=== PATIENT | female | born 1980 | race Caucasian/White ===

== ENCOUNTER → 2017-04-03 | Outpatient (CLI) | payer OTHER ==
[2017-04-03 10:33] LABS: Basophils # (A) 0.1 k/uL (0-0.2); Basophils % (A) 1 %; Eosinophils # (A) 0.3 k/uL (0-0.7); Eosinophils % (A) 3 %; HCT 43.2 % (34.0-46.0); HGB 14.5 gm/dL (11.4-16.0); Lymphocytes # (A) 3.3 k/uL (1.0-4.8); Lymphocytes % (A) 32 %; MCHC 33.6 g/dL (31.0-37.0); MCV 89.4 fL (80.0-100.0); Mean Platelet Volume 7.6; Monocytes # (A) 0.5 k/uL (0-1.0); Monocytes % (A) 5 %; Neutrophils # (A) 5.9 k/uL (1.3-7.7); Neutrophils % (A) 58 %; Platelet Count 288 k/uL (150-450); RBC 4.83 m/uL (3.80-5.40); RDW 13.1 % (11.5-15.5); WBC 10.2 k/uL (3.8-10.6)
[2017-04-03 10:45] LABS: Anion Gap 11 mmol/L; Blood Urea Nitrogen 11 mg/dL (7-17); Calcium 9.9 mg/dL (8.4-10.2); Carbon Dioxide 26 mmol/L (22-30); Chloride 103 mmol/L (98-107); Glucose 82 mg/dL (74-99); Potassium 3.9 mmol/L (3.5-5.1); Sodium 140 mmol/L (137-145)
--- NOTE | 2017-04-03 12:36 | XR ---
EXAMINATION TYPE: XR Hip Complete LT DATE OF EXAM: 04/03/2017 COMPARISON: NONE HISTORY: 36-year-old female with chronic left hip pain TECHNIQUE: 2 views FINDINGS: There is mild degenerative spurring at the left hip. There seems to be a small anterior femoral head neck junction osseous excrescence on the frog-leg lateral view. No significant hip joint space narrow ing. No acute fracture or dislocation. IMPRESSION: 1. Mild degenerative spurring at the left hip. 2. 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
== END | disposition home or self-care (01) ==
LOC: RADXRMAIN 09:58
PROVIDERS: ATTEND Physician Assistant
DX: M25.752 Osteophyte, left hip (principal); M53.83 Other specified dorsopathies, cervicothoracic region
CPT/HCPCS: 36415; 73502; 80048; 84439; 84443; 85025

== ENCOUNTER → 2017-10-02 | Outpatient (CLI) | payer OTHER ==
--- NOTE | 2017-10-04 11:25 | MR ---
EXAMINATION TYPE: MR hip LT wo con DATE OF EXAM: 10/02/2017 COMPARISON: Left hip x-ray April 03, 2017 HISTORY: Left hip pain. Pain with locking sensation and limited movement for one year per patient. Standard multiplanar, multisequence MRI departmental protocol Multiplanar, multisequence images of the pelvis focus on the left hip were acquired. FINDINGS: The bone marrow signal intensity throughout the pelvis including left hip shows heterogenei ty without discrete edema or linear T1 signal to suggest avascular necrosis. There are symmetric phys iologic small hip joint effusions noted bilaterally. No significant spurring or joint space loss is e vident bilaterally. No significant subchondral cystic changes present. No suspicious fluid signal is noted at level of greater or lesser trochanter. Labrum appears grossly intact given limitation of non arthrogram study. Visualized portion of the bladder is felt to be within normal limits. Uterus is slightly retroverted and shape. Some thickening of the junctional zone measuring up to 14 mm is present with some cystic c hange concerning for adenomyosis. Correlate clinically. There is partial visualization of both ovarie s with slightly prominent follicles. No concerning pelvic fluid collection is seen. No suspicious pel jeffrey adenopathy is noted. There is no suspicious groin adenopathy. No suspicious groin hernias are present. Muscle bulk is symm etric and felt within normal limits in both thighs. IMPRESSION: No significant finding is seen to account for patient's symptoms of left hip pain.
== END | disposition home or self-care (01) ==
LOC: RADMRIMAIN 15:52
PROVIDERS: ATTEND Family Medicine
DX: M25.552 Pain in left hip (principal)

== ENCOUNTER 2017-12-05 09:56 | Emergency (ER) | payer OTHER ==
[2017-12-05 10:02] VITALS: RESP 18
[2017-12-05] MEDS ORDERED: SODIUM CHLORIDE 0.9% 500 ML 500 ML IV STA (10:25)
[2017-12-05] MEDS ORDERED: KETOROLAC 30 MG/ML 1 ML VIAL IVP STA (10:25)
--- NOTE | 2017-12-05 10:28 | ED ---
Back Pain HPI - General Chief Complaint: Back Pain/Injury Stated Complaint: BACK PAIN Time Seen by Provider: 12/05/17 10:20 Source: patient, RN notes reviewed Mode of arrival: ambulatory Limitations: no limitations - History of Present Illness Initial Comments: 37-year-old female presents emergency Department chief complaint of right-sided rib pain. Patient states has been bothersome for last 2 weeks states that she' s been seen a chiropractor who told her that her rib is out of place. Patient states that she was feeling better but states that she went triple carpet last night and she's had increase in pain. She states it wraps around her right lower ribs and into her upper abdomen. Patient denies any left-sided chest pain no shortness of breath she has had pain with movement and deep inspiration the right. Denies headache, fever, chills, nausea vomiting diarrhea constipation. She states initially when this all started she slipped and some odd and fell. Patient otherwise has no other complaints denies any prior issues like this in the past. - Related Data Previous Rx's Medication Instructions Recorded Cyclobenzaprine [Flexeril] 10 mg PO TID PRN #15 tab 12/05/17 Ibuprofen [Motrin] 600 mg PO Q8HR PRN #30 tab 12/05/17 Allergies Allergy/AdvReac Type Severity Reaction Status Date / Time No Known Allergies Allergy Verified 12/05/17 10:02 Review of Systems ROS Statement: Those systems with pertinent positive or pertinent negative responses have been documented in the HPI. ROS Other: All systems not noted in ROS Statement are negative. Past Medical History Past Medical History: Hyperlipidemia, Hypertension Additional Past Medical History / Comment(s): glaucoma History of Any Multi-Drug Resistant Organisms: None Reported Past Surgical History: Section Additional Past Surgical History / Comment(s): carpal tunnel surgery 2016 Past Psychological History: Depression Smoking Status: Current every day smoker Past Alcohol Use History: Occasional Past Drug Use History: None Reported General Exam Limitations: no limitations General appearance: alert, in no apparent distress Head exam: Present: atraumatic, normocephalic, normal inspection Respiratory exam: Present: normal lung sounds bilaterally, chest wall tenderness (Mild right anterior lateral lower aspect). Absent: respiratory distress, wheezes, rales, rhonchi, stridor Cardiovascular Exam: Present: regular rate, normal rhythm, normal heart sounds. Absent: systolic murmur, diastolic murmur, rubs, gallop, clicks GI/Abdominal exam: Present: soft, tenderness (Minimal right upper quadrant), normal bowel sounds. Absent: distended, guarding, rebound, rigid Back exam: Absent: CVA tenderness (R), CVA tenderness (L) Skin exam: Present: warm, dry, intact, normal color. Absent: rash Course Vital Signs 12/05/17 09:59 Temperature 97.9 F Pulse Rate 70 Respiratory 18 Rate Blood Pressure 136/90 O2 Sat by Pulse 100 Oximetry Medical Decision Making - Medical Decision Making 37-year-old female female presents emergency department for right-sided rib pain. Patient had lab work, chest x-ray with rib series with no acute findings. This may be just a chest wall muscular injury she does have reproducible pain. There is no concern for cardiac issues at this time. Patient has normal lab values in normal vitals at this time. - Lab Data Result diagrams: 12/05/17 10:45 12/05/17 10:45 Lab Results 12/05/17 12/05/17 12/05/17 Range/Units 10:45 10:45 10:45 WBC 8.7 (3.8-10.6) k/uL RBC 4.56 (3.80-5.40) m/uL Hgb 13.7 (11.4-16.0) gm/dL Hct 40.4 (34.0-46.0) % MCV 88.7 (80.0-100.0) fL MCH 30.1 (25.0-35.0) pg MCHC 34.0 (31.0-37.0) g/dL RDW 14.2 (11.5-15.5) % Plt Count 255 (150-450) k/uL Neutrophils % 58 % Lymphocytes % 32 % Monocytes % 4 % Eosinophils % 2 % Basophils % 1 % Neutrophils # 5.1 (1.3-7.7) k/uL Lymphocytes # 2.8 (1.0-4.8) k/uL Monocytes # 0.4 (0-1.0) k/uL Eosinophils # 0.2 (0-0.7) k/uL Basophils # 0.1 (0-0.2) k/uL Sodium 138 (137-145) mmol/L Potassium 4.4 (3.5-5.1) mmol/L Chloride 108 H (98-107) mmol/L Carbon Dioxide 22 (22-30) mmol/L Anion Gap 8 mmol/L BUN 15 (7-17) mg/dL Creatinine 0.74 (0.52-1.04) mg/dL Est GFR (CKD-EPI)AfAm >90 (>60 ml/min/1.73 sqM) Est GFR (CKD-EPI)NonAf >90 (>60 ml/min/1.73 sqM) Glucose 84 (74-99) mg/dL Calcium 9.2 (8.4-10.2) mg/dL Total Bilirubin 0.5 (0.2-1.3) mg/dL AST 24 (14-36) U/L ALT 29 (9-52) U/L Alkaline Phosphatase 62 (38-126) U/L Total Protein 7.3 (6.3-8.2) g/dL Albumin 4.1 (3.5-5.0) g/dL Amylase 61 (30-110) U/L Lipase 81 (23-300) U/L Urine Color Yellow Urine Appearance Clear (Clear) Urine pH 5.0 (5.0-8.0) Ur Specific [place] 1.019 (1.001-1.035) Urine Protein 1+ H (Negative) Urine Glucose (UA) Negative (Negative) Urine Ketones Negative (Negative) Urine Blood Moderate H (Negative) Urine Nitrite Negative (Negative) Urine Bilirubin Negative (Negative) Urine Urobilinogen <2.0 (<2.0) mg/dL Ur Leukocyte Esterase Small H (Negative) Urine RBC 4 (0-5) /hpf Urine WBC 2 (0-5) /hpf Ur Squamous Epith Cells 4 (0-4) /hpf Urine Bacteria Occasional H (None) /hpf Urine Mucus Rare H (None) /hpf Disposition Clinical Impression: Chest wall muscle strain Disposition: HOME SELF-CARE Condition: Stable Instructions: Chest Wall Pain (ED) Additional Instructions: Please return to the Emergency Department if symptoms worsen or any other concerns. Prescriptions: Cyclobenzaprine [Flexeril] 10 mg PO TID PRN #15 tab PRN Reason: Muscle Spasm Ibuprofen [Motrin] 600 mg PO Q8HR PRN #30 tab PRN Reason: Pain Is patient prescribed a controlled substance at d/c from ED?: No Referrals: Jaspreet Bermudez DO [Primary Care Provider] - 1-2 days Time of Disposition: 11:58
[2017-12-05 10:59] LABS: Basophils # (A) 0.1 k/uL (0-0.2); Basophils % (A) 1 %; Eosinophils # (A) 0.2 k/uL (0-0.7); Eosinophils % (A) 2 %; HCT 40.4 % (34.0-46.0); HGB 13.7 gm/dL (11.4-16.0); Lymphocytes # (A) 2.8 k/uL (1.0-4.8); Lymphocytes % (A) 32 %; MCH 30.1 pg (25.0-35.0); MCV 88.7 fL (80.0-100.0); Monocytes # (A) 0.4 k/uL (0-1.0); Monocytes % (A) 4 %; Neutrophils # (A) 5.1 k/uL (1.3-7.7); Neutrophils % (A) 58 %; Platelet Count 255 k/uL (150-450); RBC 4.56 m/uL (3.80-5.40); RDW 14.2 % (11.5-15.5); WBC 8.7 k/uL (3.8-10.6)
[2017-12-05 11:02] LABS: Appearance,Urine Clear (Clear); Bacteria,Urine Occasional /hpf; Bilirubin,Urine Negative (Negative); Blood,Urine Moderate (Negative); Color,Urine Yellow; Glucose,Urine (UA) Negative (Negative); Ketones,Urine Negative (Negative); Leukocyte Esterase,Urine Small (Negative); Mucus,Urine Rare /hpf; Nitrite,Urine Negative (Negative); Protein,Urine 1+ (Negative); RBC,Urine 4 /hpf (0-5); Specific Gravity,Urine 1.019 (1.001-1.035); Squamous Epithelial Cell,Urine 4 /hpf (0-4); Urobilinogen,Urine <2.0 mg/dL (<2.0); WBC,Urine 2 /hpf (0-5)
[2017-12-05 11:09] LABS: ALT 29 U/L (9-52); AST 24 U/L (14-36); Albumin 4.1 g/dL (3.5-5.0); Alkaline Phosphatase 62 U/L (38-126); Amylase 61 U/L (30-110); Anion Gap 8 mmol/L; Blood Urea Nitrogen 15 mg/dL (7-17); Calcium 9.2 mg/dL (8.4-10.2); Carbon Dioxide 22 mmol/L (22-30); Chloride 108 mmol/L (98-107); Glucose 84 mg/dL (74-99); Lipase 81 U/L (23-300); Potassium 4.4 mmol/L (3.5-5.1); Sodium 138 mmol/L (137-145); Total Bilirubin 0.5 mg/dL (0.2-1.3); Total Protein 7.3 g/dL (6.3-8.2)
--- NOTE | 2017-12-05 11:52 | XR ---
EXAMINATION TYPE: XR ribs RT w pa chest xray , 5 VIEWS DATE OF EXAM ORDERED: 12/05/2017 HISTORY: Pain. COMPARISON: None. FINDINGS: The lungs are clear. Pleural space are clear. The heart is not enlarged. No displaced rib fracture is seen. No pneumothorax is evident. IMPRESSION: 1. NORMAL CHEST. 2. I DO NOT IDENTIFY A DISPLACED RIB FRACTURE AT THIS TIME.
[2017-12-05] MEDS ORDERED: ACET/COD 300 MG/30 MG STARTER PACK 6 TAB BTL PO STA (11:58)
[2017-12-05 12:14] VITALS: BP 131/90; PULSE 63; TEMP 97.8
== END 2017-12-05 12:15 | disposition home or self-care (01) ==
LOC: EC 09:56
DX: S29.011A Strain of muscle and tendon of front wall of thorax, initial encounter (principal); F17.200 Nicotine dependence, unspecified, uncomplicated; X50.9XXA Other and unspecified overexertion or strenuous movements or postures, initial encounter; Y93.89 Activity, other specified
CPT/HCPCS: 36415; 80053; 82150; 83690; 85025; 81001; 71101; 99284; 96374; 96361; J1885

== ENCOUNTER 2018-05-26 10:30 | Observation (INO) | payer OTHER ==
[2018-05-26] MEDS ORDERED: ONDANSETRON 4 MG/2 ML VIAL IVP STA (11:13)
[2018-05-26] MEDS ORDERED: ASPIRIN 81 MG PO STA (11:13)
[2018-05-26] MEDS ORDERED: SODIUM CHLORIDE 0.9% 1,000 ML IV STA (11:13)
--- NOTE | 2018-05-26 11:19 | ED ---
General Adult HPI <Abundio Rivers - Last Filed: 05/26/18 13:28> - General Source: patient, RN notes reviewed Mode of arrival: wheelchair Limitations: no limitations <Gavin Amador - Last Filed: 05/26/18 14:27> - General Chief complaint: Chest Pain Stated complaint: dizzy, shoulder pain Time Seen by Provider: 05/26/18 10:53 - History of Present Illness Initial comments: This a 37-year-old female presents emergency Department chief complaint of chest pain, dizziness and nausea. Patient states it started approximate hour half prior arrival. Patient states that the pain radiates up to her left shoulder with a burning sensation. No shortness of breath. Patient states she just does not feel well. She does have a history of hypertension hyperlipidemia and no family history as she has not no other family history well. No history of diabetes and there is a nonsmoker. Patient states that makes the pain feel better or worse. Patient denies any fevers chills no URI symptoms. (Gavin Amador) - Related Data Home Medications Medication Instructions Recorded Confirmed ALPRAZolam [Xanax] 0.5 mg PO DAILY PRN 05/26/18 05/26/18 Losartan [Cozaar] 25 mg PO DAILY 05/26/18 05/26/18 PARoxetine HCL [Paxil] 30 mg PO DAILY 05/26/18 05/26/18 Allergies Allergy/AdvReac Type Severity Reaction Status Date / Time No Known Allergies Allergy Verified 05/26/18 11:03 Review of Systems ROS Other: All systems not noted in ROS Statement are negative. <Abundio Rivers - Last Filed: 05/26/18 13:28> ROS Other: All systems not noted in ROS Statement are negative. <Gavin Amador - Last Filed: 05/26/18 14:27> ROS Statement: Those systems with pertinent positive or pertinent negative responses have been documented in the HPI. Past Medical History Past Medical History: Hyperlipidemia, Hypertension Additional Past Medical History / Comment(s): glaucoma History of Any Multi-Drug Resistant Organisms: None Reported Past Surgical History: Section Additional Past Surgical History / Comment(s): carpal tunnel surgery 2016 Past Psychological History: Depression Smoking Status: Current every day smoker Past Alcohol Use History: Occasional Past Drug Use History: None Reported <Gavin Amador - Last Filed: 05/26/18 14:27> General Exam Limitations: no limitations General appearance: alert, in no apparent distress Head exam: Present: atraumatic, normocephalic, normal inspection Eye exam: Present: normal appearance, PERRL, EOMI. Absent: scleral icterus, conjunctival injection, periorbital swelling ENT exam: Present: normal exam, mucous membranes moist Neck exam: Present: normal inspection. Absent: tenderness, meningismus, lymphadenopathy Respiratory exam: Present: normal lung sounds bilaterally. Absent: respiratory distress, wheezes, rales, rhonchi, stridor Cardiovascular Exam: Present: regular rate, normal rhythm, normal heart sounds. Absent: systolic murmur, diastolic murmur, rubs, gallop, clicks GI/Abdominal exam: Present: soft, tenderness (Mild epigastric), normal bowel sounds. Absent: distended, guarding, rebound, rigid Neurological exam: Present: alert, oriented X3, CN II-XII intact Skin exam: Present: warm, dry, intact, normal color. Absent: rash <Gavin Amador - Last Filed: 05/26/18 14:27> Course <Abundio Rivers - Last Filed: 05/26/18 13:28> Vital Signs 05/26/18 05/26/18 05/26/18 10:45 11:39 12:03 Temperature 98.5 F Pulse Rate 81 70 66 Respiratory 16 18 18 Rate Blood Pressure 158/112 132/92 131/84 O2 Sat by Pulse 96 96 Oximetry 05/26/18 05/26/18 12:30 14:00 Temperature Pulse Rate 67 65 Respiratory 18 16 Rate Blood Pressure 137/84 130/87 O2 Sat by Pulse 95 96 Oximetry - Reevaluation(s) Reevaluation #1: 05/26/18 13:28 Case was discussed with practitioner alcon, chart and plan reviewed. Case also discussed with Dr. Eric, who will admit covering for Dr. Bermudez. (Abundio Rivers) Medical Decision Making - Lab Data Result diagrams: 05/26/18 11:25 05/26/18 11:25 <Abundio Rivers - Last Filed: 05/26/18 13:28> - Lab Data Result diagrams: 05/26/18 11:25 05/26/18 11:25 <Gavin Amador - Last Filed: 05/26/18 14:27> - Medical Decision Making 37-year-old female presented for chest pain, dizziness. Patient had lab work and EKG, chest x-ray. No acute findings at this time though concern for cardiac disease. Patient will be admitted (Gavin Amador) - Lab Data Lab Results 05/26/18 05/26/18 05/26/18 Range/Units 11:25 11:25 11:25 WBC 7.0 (3.8-10.6) k/uL RBC 4.83 (3.80-5.40) m/uL Hgb 14.5 (11.4-16.0) gm/dL Hct 41.9 (34.0-46.0) % MCV 86.7 (80.0-100.0) fL MCH 30.1 (25.0-35.0) pg MCHC 34.7 (31.0-37.0) g/dL RDW 14.1 (11.5-15.5) % Plt Count 260 (150-450) k/uL Neutrophils % 65 % Lymphocytes % 25 % Monocytes % 4 % Eosinophils % 3 % Basophils % 1 % Neutrophils # 4.5 (1.3-7.7) k/uL Lymphocytes # 1.8 (1.0-4.8) k/uL Monocytes # 0.3 (0-1.0) k/uL Eosinophils # 0.2 (0-0.7) k/uL Basophils # 0.1 (0-0.2) k/uL PT 10.2 (9.0-12.0) sec INR 0.9 (<1.2) APTT 24.7 (22.0-30.0) sec Sodium 137 (137-145) mmol/L Potassium 4.4 (3.5-5.1) mmol/L Chloride 103 (98-107) mmol/L Carbon Dioxide 24 (22-30) mmol/L Anion Gap 10 mmol/L BUN 16 (7-17) mg/dL Creatinine 0.67 (0.52-1.04) mg/dL Est GFR (CKD-EPI)AfAm >90 (>60 ml/min/1.73 sqM) Est GFR (CKD-EPI)NonAf >90 (>60 ml/min/1.73 sqM) Glucose 85 (74-99) mg/dL Calcium 9.5 (8.4-10.2) mg/dL Magnesium 1.8 (1.6-2.3) mg/dL Total Bilirubin 0.7 (0.2-1.3) mg/dL AST 25 (14-36) U/L ALT 33 (9-52) U/L Alkaline Phosphatase 76 (38-126) U/L Troponin I (0.000-0.034) ng/mL Total Protein 7.9 (6.3-8.2) g/dL Albumin 4.6 (3.5-5.0) g/dL Urine Color Urine Appearance (Clear) Urine pH (5.0-8.0) Ur Specific [place] (1.001-1.035) Urine Protein (Negative) Urine Glucose (UA) (Negative) Urine Ketones (Negative) Urine Blood (Negative) Urine Nitrite (Negative) Urine Bilirubin (Negative) Urine Urobilinogen (<2.0) mg/dL Ur Leukocyte Esterase (Negative) 05/26/18 05/26/18 Range/Units 11:25 12:00 WBC (3.8-10.6) k/uL RBC (3.80-5.40) m/uL Hgb (11.4-16.0) gm/dL Hct (34.0-46.0) % MCV (80.0-100.0) fL MCH (25.0-35.0) pg MCHC (31.0-37.0) g/dL RDW (11.5-15.5) % Plt Count (150-450) k/uL Neutrophils % % Lymphocytes % % Monocytes % % Eosinophils % % Basophils % % Neutrophils # (1.3-7.7) k/uL Lymphocytes # (1.0-4.8) k/uL Monocytes # (0-1.0) k/uL Eosinophils # (0-0.7) k/uL Basophils # (0-0.2) k/uL PT (9.0-12.0) sec INR (<1.2) APTT (22.0-30.0) sec Sodium (137-145) mmol/L Potassium (3.5-5.1) mmol/L Chloride (98-107) mmol/L Carbon Dioxide (22-30) mmol/L Anion Gap mmol/L BUN (7-17) mg/dL Creatinine (0.52-1.04) mg/dL Est GFR (CKD-EPI)AfAm (>60 ml/min/1.73 sqM) Est GFR (CKD-EPI)NonAf (>60 ml/min/1.73 sqM) Glucose (74-99) mg/dL Calcium (8.4-10.2) mg/dL Magnesium (1.6-2.3) mg/dL Total Bilirubin (0.2-1.3) mg/dL AST (14-36) U/L ALT (9-52) U/L Alkaline Phosphatase (38-126) U/L Troponin I <0.012 (0.000-0.034) ng/mL Total Protein (6.3-8.2) g/dL Albumin (3.5-5.0) g/dL Urine Color Light Yellow Urine Appearance Clear (Clear) Urine pH 6.5 (5.0-8.0) Ur Specific [place] 1.004 (1.001-1.035) Urine Protein Negative (Negative) Urine Glucose (UA) Negative (Negative) Urine Ketones Negative (Negative) Urine Blood Negative (Negative) Urine Nitrite Negative (Negative) Urine Bilirubin Negative (Negative) Urine Urobilinogen <2.0 (<2.0) mg/dL Ur Leukocyte Esterase Negative (Negative) Disposition <Abundio Rivers - Last Filed: 05/26/18 13:28> <Gavin Amador - Last Filed: 05/26/18 14:27> Clinical Impression: Chest pain Disposition: ADMITTED IP TO THIS HOSP Condition: Stable
[2018-05-26 11:35] LABS: Basophils # (A) 0.1 k/uL (0-0.2); Basophils % (A) 1 %; Eosinophils # (A) 0.2 k/uL (0-0.7); Eosinophils % (A) 3 %; HCT 41.9 % (34.0-46.0); HGB 14.5 gm/dL (11.4-16.0); Lymphocytes # (A) 1.8 k/uL (1.0-4.8); Lymphocytes % (A) 25 %; MCH 30.1 pg (25.0-35.0); MCHC 34.7 g/dL (31.0-37.0); MCV 86.7 fL (80.0-100.0); Monocytes # (A) 0.3 k/uL (0-1.0); Monocytes % (A) 4 %; Neutrophils # (A) 4.5 k/uL (1.3-7.7); Neutrophils % (A) 65 %; Platelet Count 260 k/uL (150-450); RBC 4.83 m/uL (3.80-5.40); RDW 14.1 % (11.5-15.5)
[2018-05-26 11:51] LABS: ALT 33 U/L (9-52); AST 25 U/L (14-36); Albumin 4.6 g/dL (3.5-5.0); Alkaline Phosphatase 76 U/L (38-126); Anion Gap 10 mmol/L; Blood Urea Nitrogen 16 mg/dL (7-17); Calcium 9.5 mg/dL (8.4-10.2); Carbon Dioxide 24 mmol/L (22-30); Chloride 103 mmol/L (98-107); Glucose 85 mg/dL (74-99); Magnesium 1.8 mg/dL (1.6-2.3); Potassium 4.4 mmol/L (3.5-5.1); Sodium 137 mmol/L (137-145); Total Bilirubin 0.7 mg/dL (0.2-1.3); Total Protein 7.9 g/dL (6.3-8.2)
--- NOTE | 2018-05-26 11:55 | XR ---
EXAMINATION TYPE: XR chest 2V DATE OF EXAM: 05/26/2018 COMPARISON: 12/05/2017 HISTORY: Chest pressure TECHNIQUE: Frontal and lateral views of the chest are obtained. FINDINGS: There is no focal air space opacity, pleural effusion, or pneumothorax seen. The cardiac silhouette size is within normal limits. The osseous structures are intact. IMPRESSION: No acute cardiopulmonary process.
[2018-05-26 12:08] LABS: INR 0.9 (<1.2); Partial Thromboplastin Time 24.7 sec (22.0-30.0); Prothrombin Time 10.2 sec (9.0-12.0)
[2018-05-26 12:08] LABS: Appearance,Urine Clear (Clear); Bilirubin,Urine Negative (Negative); Blood,Urine Negative (Negative); Color,Urine Light Yellow; Glucose,Urine (UA) Negative (Negative); Ketones,Urine Negative (Negative); Leukocyte Esterase,Urine Negative (Negative); Nitrite,Urine Negative (Negative); PH, Urine 6.5 (5.0-8.0); Protein,Urine Negative (Negative); Specific Gravity,Urine 1.004 (1.001-1.035); Urobilinogen,Urine <2.0 mg/dL (<2.0)
[2018-05-26] MEDS ORDERED: HEPARIN SODIUM,PORCINE 5,000 UNIT/ML 1 ML VIAL IV ONE (13:18)
[2018-05-26] MEDS ORDERED: NITROGLYCERIN SL TABS 0.4 MG TAB SUBLINGUAL PRN (13:18)
[2018-05-26] MEDS ORDERED: HEPARIN SOD,PORK IN 0.45% NACL 25,000 UNIT in 0.45% NACL 1 250ML.BAG IV SCH (13:30)
[2018-05-26] MEDS ORDERED: HEPARIN SODIUM,PORCINE 5,000 UNIT/ML 1 ML VIAL IV PRN (19:30)
[2018-05-26] MEDS: ALPRAZolam 0.5 MG TAB PO PRN (20:39)
[2018-05-26] MEDS ORDERED: RX INFO: IV CONTRAST WAS GIVEN 1 EACH MISC MISCELLANE PRN (21:58)
--- NOTE | 2018-05-26 22:35 | HP ---
HISTORY AND PHYSICAL DATE OF ADMISSION: 05/26/2018 DATE OF SERVICE: 05/26/2018. PRESENTING COMPLAINT: Left shoulder pain and chest pain. HISTORY OF PRESENTING COMPLAINT: This is a pleasant 37-year-old patient Dr. Jaspreet Bermudez chronic stable medical conditions include hypertension, hyperlipidemia, anxiety, depression, obstructive sleep apnea though does not use a machine for the same. This morning, the patient presented after she developed pain below the left shoulder around the shoulder blade and just did not feel right, felt a pressure in the chest, felt a bit dizzy, lightheaded. The pressure in the chest was present for about an hour at least. 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 She did thought this was more of her anxious attack initially, but then because the symptoms persisted and just fell off, she decided to come in. No prior cardiac history. Does feel a bit tired. REVIEW OF SYSTEMS: CONSTITUTIONAL: None. HEENT as above. RESPIRATORY as above. CARDIOVASCULAR as above. GASTROINTESTINAL: None. GENITOURINARY: None. MUSCULOSKELETAL: None. DERMATOLOGIC, HEMATOLOGIC, LYMPHATIC: None. PSYCHIATRY: Anxious. NEUROLOGICAL: None. PAST MEDICAL HISTORY: Hypertension, hyperlipidemia, obstructive sleep apnea does not use a machine, anxiety and depression. PAST SURGICAL HISTORY: , bilateral carpal tunnel surgery, right eye vitrectomy. SOCIAL HISTORY: Lives with her fiancee. The patient smoked for about 25 years, stopped 6 months ago. Alcohol occasionally. FAMILY HISTORY: Of epilepsy, seizure disorder, hyperlipidemia. HOME MEDICATIONS: 1. Xanax 0.5 p.o. daily p.r.n. 2. Paxil 30 mg a day. 3. Cozaar 25 mg a day. ALLERGIES: None. PHYSICAL EXAMINATION: VITAL SIGNS: Temperature 98.5, pulse 81, respirations 16, blood pressure 158/112, repeat 132/92, pulse ox 96 percent on room air. GENERAL APPEARANCE: Average built, BMI 36.9. Lying in bed, not in distress. EYES: Pupils equal. Conjunctivae normal. HEENT: External appearance of nose and ears normal. Oral cavity normal. NECK: JVD not raised. Mass not palpable. Respiratory effort normal. LUNGS: Fair air entry. CARDIOVASCULAR: 1st and 2nd sounds normal. No edema. ABDOMEN: Soft, nontender. Liver and spleen not palpable. LYMPHATIC: No lymph nodes palpable in the neck and axilla. PSYCHIATRY: Alert and oriented x3. Mood and affect normal. NEUROLOGICAL: Pupils equal. Cranial nerves grossly intact. Power and sensation grossly intact. INVESTIGATIONS: EKG tracing personally reviewed by me shows normal sinus rhythm. Chest x-ray film personally reviewed by me shows lung lennon to be clear. ASSESSMENT: 1. This is a patient who presents with an episode of pain around the left shoulder blade, chest pressure lasting for quite a few hours, dizzy, lightheaded with cardiac risk factors being ex-smoker, hypertension, hyperlipidemia. Though less likely but we will rule out aortic dissection with CT scan of the chest with contrast. Also do a D-dimer and do serial cardiac enzymes to rule out cardiac ischemia. 2. Essential hypertension. 3. Hyperlipidemia. 4. Obstructive sleep apnea does not use CPAP machine. 5. Obesity BMI 36.9. 6. Anxiety and depression not otherwise specified. PLAN: Patient was started on IV heparin in the ER. Home medications resumed including aspirin. CT angio of the chest has been ordered and a D-dimer. Cardiology was consulted. Care was discussed with the patient. Copy to Dr. Bermudez. MMBRAYDENL / CAROLINAN: [id number] /
--- NOTE | 2018-05-26 22:39 | CT ---
EXAM: CT Angiography Chest Without And With Intravenous Contrast CLINICAL HISTORY: Rule out aortic dissection TECHNIQUE: Axial computed tomographic angiography images of the chest without and with intravenous contrast using pulmonary embolism protocol. CTDI is 0. 142, 0.142, 11.6, 4, 52, 12.9 mGy and DLP is 1171.9 mGy-cm. This CT exam was performed using one or more of the following dose reduction techniques: automated exposure control, adjustment of the mA and/or kV according to patient size, and/or use of iterative reconstruction technique. 3D and MIP reconstructed images were created and reviewed. COMPARISON: No relevant prior studies available. FINDINGS: Pulmonary arteries: Unremarkable. No pulmonary embolism. Aorta: No thoracic aortic dissection or aneurysm. Lungs: Dependent atelectasis. No mass. Pleural space: Unremarkable. No significant effusion. No pneumothorax. Heart: Unremarkable. No cardiomegaly. No significant pericardial effusion. No evidence of RV dysfunction. Thyroid: 6 mm hypodense lesion seen within the inferior left thyroid lobe which is nonspecific. Bones/joints: No acute fracture. No dislocation. Soft tissues: Unremarkable. Lymph nodes: Subcentimeter mediastinal lymph nodes, likely reactive. Liver: Punctate calcification within the right hepatic lobe. IMPRESSION: 1. No thoracic aortic dissection or aneurysm. 2. Dependent atelectasis.
[2018-05-27 06:37] LABS: Platelet Count 222 k/uL (150-450)
[2018-05-27 06:57] LABS: Cholesterol 288 mg/dL (<200); HDL Cholesterol 43 mg/dL (40-60)
[2018-05-27 07:05] LABS: Triglycerides 679 mg/dL (<150)
[2018-05-27 08:06] VITALS: RESP 18
[2018-05-27] MEDS ORDERED: ASPIRIN 325 MG TAB PO SCH (09:00)
[2018-05-27] MEDS ORDERED: PARoxetine 10 MG TAB PO SCH (09:00)
[2018-05-27] MEDS ORDERED: LOSARTAN 25 MG TAB PO SCH (09:00)
--- NOTE | 2018-05-27 09:41 | P.CRDCN ---
History of Present Illness Consult date: 05/27/18 History of present illness: This is a 37-year-old female with history of hypertension, hypercholesterolemia and also history of smoking who comes to the hospital with complaints of left- sided shoulder pain posteriorly and also tight feeling in the chest. She stopped smoking about 6 months ago. She used to be on hypertensive medications but discontinued for a while. Patient restart her medications on Thursday. She also has history of hypercholesterolemia and used to take statins hasn't been taking recently. Apparently, the discomfort in the shoulder blade area lasted several hours. The test tightness lasted for a few hours and then subsided. This morning patient is feeling good. Her cardiac enzymes are negative and her EKGs are normal. Given her multiple risk factors, patient is advised to have stress echocardiogram to rule out any inducible ischemia. Patient will also have an echocardiogram to assess LV function and valvular function. Further recommendations depend upon the findings on the ABOVE tests. Patient also had a computed tomography scan of the chest which did not reveal any evidence of aortic dissection. Patient is currently not working. Patient had 3 children. There is family history of hypertension, hypercholesterolemia, but no definite evidence of myocardial infarction. She has only half-sister Review of Systems As per the chart Past Medical History Past Medical History: Eye Disorder, Hyperlipidemia, Hypertension, Sleep Apnea/CPAP/BIPAP Additional Past Medical History / Comment(s): Bilateral glaucoma, FLACA but does not wear her device d/t she states it is dirty. History of Any Multi-Drug Resistant Organisms: None Reported Past Surgical History: Section, Orthopedic Surgery Additional Past Surgical History / Comment(s): Bilateral carpal tunnel surgery 2016, R eye vitrectomy. Past Anesthesia/Blood Transfusion Reactions: Motion Sickness Additional Past Anesthesia/Blood Transfusion Reaction / Comment(s): Pt is unsure if she received blood at time of her . Smoking Status: Former smoker - Past Family History Father Family Medical History: Hyperlipidemia, Seizure Disorder, Sleep Apnea/CPAP/BIPAP Additional Family Medical History / Comment(s): Epilepsy d/t brain injury. Mother Family Medical History: Neurologic Disorder Additional Family Medical History / Comment(s): Mother at the age of 57yrs from supernuclear palsey. Medications and Allergies Home Medications Medication Instructions Recorded Confirmed Type ALPRAZolam [Xanax] 0.5 mg PO DAILY PRN 05/26/18 05/26/18 History Losartan [Cozaar] 25 mg PO DAILY 05/26/18 05/26/18 History PARoxetine HCL [Paxil] 30 mg PO DAILY 05/26/18 05/26/18 History Allergies Allergy/AdvReac Type Severity Reaction Status Date / Time No Known Allergies Allergy Verified 05/26/18 11:03 Physical Exam Vitals: Vital Signs Temp Pulse Pulse Pulse Resp BP BP 05/27/18 08:00 97.5 F L 65 18 05/27/18 03:55 98.0 F 66 15 126/85 05/27/18 03:21 15 05/27/18 00:00 97.9 F 66 15 132/77 05/26/18 20:00 14 05/26/18 19:08 98.2 F 86 14 125/85 05/26/18 15:54 05/26/18 15:03 98.2 F 64 18 148/91 05/26/18 14:30 68 18 130/87 05/26/18 14:00 65 16 130/87 05/26/18 12:30 67 18 137/84 05/26/18 12:03 66 18 131/84 05/26/18 11:39 70 18 132/92 05/26/18 10:45 98.5 F 81 16 158/112 BP Pulse Ox 05/27/18 08:00 139/99 98 05/27/18 03:55 97 05/27/18 03:21 05/27/18 00:00 96 05/26/18 20:00 05/26/18 19:08 95 05/26/18 15:54 97 05/26/18 15:03 98 05/26/18 14:30 95 05/26/18 14:00 96 05/26/18 12:30 95 05/26/18 12:03 96 05/26/18 11:39 05/26/18 10:45 96 Intake and Output 05/26/18 05/27/18 05/27/18 22:59 06:59 14:59 Intake Total 84.133 Balance 84.133 Intake: Intake, IV Titration 84.133 Amount Heparin Sod,Pork in 0.45% 84.133 NaCl 25,000 unit In 0.45 % NaCl 1 250ml.bag @ 10. 25 UNITS/KG/HR 9.996 mls/ hr IV .Q24H [facility] Rx#: [id number] Other: Voiding Method Toilet Toilet Toilet # Voids 1 1 GENERAL EXAM: Patient is alert and oriented and doesn't appear to be in any acute distress HEENT: Normocephalic. Normal reaction of pupils, equal size, normal range of extraocular motion. No erythema or exudates in the throat. NECK: No masses, no nuchal rigidity. CHEST: No chest wall deformity. LUNGS: Equal air entry with no crackles or wheeze. HEART: S1 and S2 normal with no audible mumurs or gallops. Regular rhythm, femorals equal on both sides.. ABDOMEN: No hepatosplenomegaly, normal bowel sounds, no guarding or rigidity. SKIN: No rashes CENTRAL NERVOUS SYSTEM: No focal deficits. EXTREMITIES: No cyanosis, clubbing or edema. Results 05/27/18 06:17 05/26/18 11:25 Cardiac Enzymes 05/26/18 05/26/18 05/26/18 Range/Units 11:25 11:25 20:02 AST 25 (14-36) U/L Troponin I <0.012 <0.012 (0.000-0.034) ng/mL 05/27/18 Range/Units 01:20 AST (14-36) U/L Troponin I <0.012 (0.000-0.034) ng/mL Coagulation 05/26/18 05/26/18 05/27/18 Range/Units 11:25 20:02 06:17 PT 10.2 (9.0-12.0) sec APTT 24.7 33.7 H 51.6 H (22.0-30.0) sec Lipids 05/27/18 Range/Units 06:17 Triglycerides 679 H (<150) mg/dL Cholesterol 288 H (<200) mg/dL HDL Cholesterol 43 (40-60) mg/dL CBC 05/26/18 05/27/18 Range/Units 11:25 06:17 WBC 7.0 (3.8-10.6) k/uL RBC 4.83 (3.80-5.40) m/uL Hgb 14.5 (11.4-16.0) gm/dL Hct 41.9 (34.0-46.0) % Plt Count 260 222 (150-450) k/uL Comprehensive Metabolic Panel 05/26/18 Range/Units 11:25 Sodium 137 (137-145) mmol/L Potassium 4.4 (3.5-5.1) mmol/L Chloride 103 (98-107) mmol/L Carbon Dioxide 24 (22-30) mmol/L BUN 16 (7-17) mg/dL Creatinine 0.67 (0.52-1.04) mg/dL Glucose 85 (74-99) mg/dL Calcium 9.5 (8.4-10.2) mg/dL AST 25 (14-36) U/L ALT 33 (9-52) U/L Alkaline Phosphatase 76 (38-126) U/L Total Protein 7.9 (6.3-8.2) g/dL Albumin 4.6 (3.5-5.0) g/dL Current Medications Generic Name Dose Route Start Last Admin Trade Name Freq PRN Reason Stop Dose Admin Alprazolam 0.5 mg 05/26/18 17:05 05/26/18 20:39 Xanax PO 0.5 mg DAILY PRN Administration Anxiety Aspirin 325 mg 05/27/18 09:00 Aspirin PO DAILY [facility] Heparin Sodium (Porcine) 0 unit 05/26/18 19:30 05/26/18 22:51 Heparin IV 4,000 unit PER PROTOCOL PRN Administration Low PTT Protocol Heparin Sodium/Sodium Chloride 250 mls @ 9.996 mls/hr 05/26/18 13:30 05/26/18 22:52 25,000 unit/ Sodium Chloride IV 13.18 units/kg/hr .Q24H [facility] 12.85 mls/hr Titration Protocol 10.25 UNITS/KG/HR Losartan Potassium 25 mg 05/27/18 09:00 Cozaar PO DAILY [facility] Miscellaneous Information 1 each 05/26/18 21:58 Rx Info: Iv Contrast Was Given MISCELLANE 05/28/18 21:59 DAILY PRN Per Protocol Nitroglycerin 0.4 mg 05/26/18 13:18 Nitrostat SUBLINGUAL Q5M PRN Chest Pain Paroxetine HCl 30 mg 05/27/18 09:00 Paxil PO DAILY [facility] Intake and Output 05/26/18 05/27/18 05/27/18 22:59 06:59 14:59 Intake Total 84.133 Balance 84.133 Intake: Intake, IV Titration 84.133 Amount Heparin Sod,Pork in 0.45% 84.133 NaCl 25,000 unit In 0.45 % NaCl 1 250ml.bag @ 10. 25 UNITS/KG/HR 9.996 mls/ hr IV .Q24H [facility] Rx#: [id number] Other: Voiding Method Toilet Toilet Toilet # Voids 1 1 05/27/18 06:17 05/26/18 11:25 EKG Interpretations (text) Sinus rhythm Assessment and Plan (1) Essential hypertension Current Visit: Yes Status: Acute Code(s): I10 - ESSENTIAL (PRIMARY) HY PERTENSION SNOMED Code(s): 03733292 (2) Chest pain Current Visit: Yes Status: Acute Code(s): R07.9 - CHEST PAIN, UNSPECIFIED SNOMED Code(s): 26662652 (3) Hypercholesterolemia Current Visit: Yes Status: Acute Code(s): E78.00 - PURE HYPERCHOLESTEROLEMIA, UNSPECIFIED SNOMED Code(s): 03176529 (4) History of smoking Current Visit: Yes Status: Acute Code(s): Z87.891 - PERSONAL HISTORY OF NICOTINE DEPENDENCE SNOMED Code(s): 446843412 Plan: Patient's symptoms appear to be atypical and resolved at this time. Cardiac enzyme studies and EKGs are normal. We'll proceed with stress echocardiogram and also surface echocardiogram. If this test echo is negative, patient could be discharged home. Patient should be continued on antihypertensive medication and also probably lipid-lowering agents. Regular exercise and dietary modifications suggested
[2018-05-27] MEDS: ALPRAZolam 0.5 MG TAB PO PRN (11:31)
[2018-05-27 12:25] VITALS: BP 132/89; PULSE 69; TEMP 98.3
--- NOTE | 2018-05-27 12:37 | ECHOF ---
Referral Reason:chest pain MEASUREMENTS -------- HEIGHT: 162.6 cm WEIGHT: 97.5 kg BP: RVIDd: 3.1 cm (< 3.3) IVSd: 1.1 cm (0.6 - 1.1) LVIDd: 5.0 cm (3.9 - 5.3) LVPWd: 1.3 cm (0.6 - 1.1) IVSs: 1.8 cm LVIDs: 3.0 cm LVPWs: 1.4 cm LAESV Index (A-L): 10.84 ml/m Ao Diam: 2.4 cm (2.0 - 3.7) AV Cusp: 2.0 cm (1.5 - 2.6) LA Diam: 3.4 cm (2.7 - 3.8) MV EXCURSION: 22.560 mm (> 18.000) MV EF SLOPE: 184 mm/s (70 - 150) EPSS: 0.6 cm MV E Luis: 0.69 m/s MV DecT: 225 ms MV A Luis: 0.50 m/s MV E/A Ratio: 1.39 RAP: 5.00 mmHg RVSP: 14.10 mmHg FINDINGS -------- Sinus rhythm. This was a technically good study. The left ventricular size is normal. Left ventricular wall thickness is normal. Overall left vent ricular systolic function is normal with, an EF between 55 - 60 %. The right ventricle is normal in size. The left atrium is normal in size. The right atrial size is normal. The aortic valve is trileaflet and appears structurally normal. The mitral valve leaflets are mildly thickened. There is trace mitral regurgitation. Trace tricuspid regurgitation present. The right ventricular systolic pressure, as measured by Dopp ler, is 14.10mmHg. There is no pulmonic regurgitation present. The aortic root size is normal. Normal inferior vena cava with normal inspiratory collapse consistent with estimated right atrial pre ssure of 5 mmHg. There is no pericardial effusion. CONCLUSIONS -------- 1. Sinus rhythm. 2. This was a technically good study. 3. The left ventricular size is normal. 4. Left ventricular wall thickness is normal. 5. Overall left ventricular systolic function is normal with, an EF between 55 - 60 %. 6. The right ventricle is normal in size. 7. The left atrium is normal in size. 8. The right atrial size is normal. 9. The aortic valve is trileaflet and appears structurally normal. 10. The mitral valve leaflets are mildly thickened. 11. There is trace mitral regurgitation. 12. Trace tricuspid regurgitation present. 13. The right ventricular systolic pressure, as measured by Doppler, is 14.10mmHg. 14. There is no pulmonic regurgitation present. 15. The aortic root size is normal. 16. Normal inferior vena cava with normal inspiratory collapse consistent with estimated right atrial pressure of 5 mmHg. 17. There is no pericardial effusion. PRODUCT DEVELOPMENT DIRECTOR: Sujey Camacho RDCS
--- NOTE | 2018-05-27 12:46 | P.STRESS ---
- Stress Test Note Stress Test Results/Findings: Exam Performed: stress test Exam Date: 05/27/18 Reason for Exam: CHEST PAIN Height: 5 ft 4 in Weight: 97.522 kg Protocol: ZULEIKA Stage: 4 Duration of Exercise: 9:47 Resting Heart Rate: 77 Resting Blood Pressure: 121/84 Maximum Achieved Heart Rate: 157 Maximum Achieved Blood Pressure: 203/60 85% PMHR: 154 100% PMHR: 181 METS: 10.7 Technologist Comment: Stress Test Results/Findings: This is a 37-year-old female who is being evaluated for symptoms of chest pain and shortness of breath. Patient has history of hypertension, hypercholesterolemia and smoking. Stress data: Baseline EKG showed sinus rhythm with normal [place] interval and QRS duration. Blood pressure at rest is 120/80. Pulse rate of 77. Patient walked on the Zuleika protocol for 9 minutes and 47 seconds achieving a maximal heart rate of 157 with a blood pressure of 203/60. EKGs taken during and after x-ray did not reveal any changes of ischemia. Patient did not express any chest pain. Final impression: #1. Negative stress test #2. Patient did not express any chest pain #3. No arrhythmias noted. #4. Excess capacity is average.
--- NOTE | 2018-05-28 08:19 | DS ---
DISCHARGE SUMMARY DATE OF ADMISSION: 05/26/2018 DATE OF DISCHARGE: 05/27/2018 FINAL DIAGNOSES: 1. Chest pain, could be psychosomatic from anxiety. 2. Essential hypertension. 3. Hyperlipidemia. 4. Obstructive sleep apnea, does not use CPAP machine. 5. Obesity, body mass index 36.9. 6. Anxiety, depression, not otherwise specified. HOSPITAL COURSE: This patient presented with chest pain. Stress test was negative. PE was ruled out. This could have been psychosomatic. A 2D echo was unremarkable. CONSULTATION: Dr. Polk from Cardiology. PHYSICAL EXAMINATION: On examination, temperature 98.3, pulse 69, respiratory 18, blood pressure 132/89, pulse ox 96% on room air. LUNGS: Clear. CARDIOVASCULAR: First and second sounds normal. DISCHARGE MEDICATIONS: 1. Xanax 0.5 p.o. daily p.r.n. 2. Cozaar 25 mg p.o. daily. 3. Paxil 30 mg p.o. daily. 4. Lipitor 20 mg p.o. daily. Follow up with Dr. Bermudez in 3 days. INVESTIGATIONS: The patient's triglycerides were 679 and cholesterol was 288. MMODL / IJN: [id number] /
--- NOTE | 2018-05-31 17:13 | EST ---
Stress Test Results/Findings: Exam Performed: stress test Exam Date: 05/27/18 Reason for Exam: CHEST PAIN Height: 5 ft 4 in Weight: 97.522 kg Protocol: ZULEIKA Stage: 4 Duration of Exercise: 9:47 Resting Heart Rate: 77 Resting Blood Pressure: 121/84 Maximum Achieved Heart Rate: 157 Maximum Achieved Blood Pressure: 203/60 85% PMHR: 154 100% PMHR: 181 METS: 10.7 Technologist Comment: Stress Test Results/Findings: This is a 37-year-old female who is being evaluated for symptoms of chest pain and shortness of breath. Patient has history of hypertension, hypercholesterolemia and smoking. Stress data: Baseline EKG showed sinus rhythm with normal [place] interval and QRS duration. Blood pressure at rest is 120/80. Pulse rate of 77. Patient walked on the Zuleika protocol for 9 minutes and 47 seconds achieving a maximal heart rate of 157 with a blood pressure of 203/60. EKGs taken during and after x-ray did not reveal any changes of ischemia. Patient did not express any chest pain. Final impression: #1. Negative stress test #2. Patient did not express any chest pain #3. No arrhythmias noted. #4. Exercise capacity is average. MTDD
== END 2018-05-27 16:46 | disposition home or self-care (01) ==
LOC: EC 10:30 → 1SOBS 13:18
PROVIDERS: ADMIT Hospitalist; ATTEND Hospitalist
DX: R07.89 Other chest pain (principal); R42 Dizziness and giddiness; R11.0 Nausea; R06.02 Shortness of breath; M25.512 Pain in left shoulder; R20.8 Other disturbances of skin sensation; I10 Essential (primary) hypertension; E78.5 Hyperlipidemia, unspecified; E78.00 Pure hypercholesterolemia, unspecified; F41.9 Anxiety disorder, unspecified; F32.9 Major depressive disorder, single episode, unspecified; G47.33 Obstructive sleep apnea (adult) (pediatric); E66.9 Obesity, unspecified; Z68.36 Body mass index [BMI] 36.0-36.9, adult; T46.5X6A Underdosing of other antihypertensive drugs, initial encounter; T46.6X6A Underdosing of antihyperlipidemic and antiarteriosclerotic drugs, initial encounter; Z79.899 Other long term (current) drug therapy; Z87.891 Personal history of nicotine dependence; Z82.0 Family history of epilepsy and other diseases of the nervous system; Z82.49 Family history of ischemic heart disease and other diseases of the circulatory system
CPT/HCPCS: 96366 ×2; 96376 ×2; 96361; 96365; 96375; 99285; 36415; 93005; 93017; 93306; 85379; 80061; 80053; 83735; 84484 ×2; 85025; 85049; 85610; 85730 ×2; 81003; 71046; 71275; G0378 ×2; J1644 ×2; J2405; Q9967

== ENCOUNTER → 2018-06-08 | Outpatient (CLI) | payer OTHER ==
--- NOTE | 2018-06-08 18:05 | CONS ---
CONSULTATION REASON FOR CONSULTATION: Consultation for sleep apnea. A 37-year-old female patient with known history of obstructive sleep apnea diagnosed and treated through a sleep center and [place], [place]. This was more than 5 years ago and since 2 years, the patient has been off treatment as her old machine broke and she has not been able to establish herself with a sleep physician. She is coming in and she is quite symptomatic. She is snoring. She has witnessed apneas and excessive hypersomnia and sleepiness. Fairview score is at 15. She has gained weight and she is very much interested in proceeding with treatment and reevaluation regarding obstructive sleep apnea. No sleep paralysis, no hallucinations, no cataplexy. She is going to bed at 9:00 pm, waking up 7:00 am in the morning. Despite that, she is feeling drowsy and sleepy. PAST MEDICAL HISTORY: Obesity, obstructive sleep apnea, hypertension, anxiety and hyperlipidemia. PAST SURGICAL HISTORY: Includes and carpal tunnel release. DRUG ALLERGIES: Not known. ALLERGIES: SHE IS ALLERGIC TO POLLEN AND CATS. MEDICATION LIST: Includes Paxil 20 daily, lisinopril 20 daily, Xanax 1.5 daily, Lipitor 20 daily. SOCIAL HISTORY: Nonsmoker. No history of alcohol. No history of IV drugs. FAMILY HISTORY: Negative for sleep apnea. REVIEW OF SYSTEMS: 14-point review of system was done and positive findings are mentioned above in the history of present illness. PHYSICAL EXAMINATION: BP is 131/98, pulse 60, respirations 14, temperature 98.6. Saturation 98% on room air. Height is 5 feet, 5 inches, weight is 214. Fairview score of 15. BMI 35.6, neck size 15.5 inches, Fairview score of 15. Temperature 98.6. GENERAL APPEARANCE: Calm, comfortable. Head is atraumatic, normocephalic. NECK: Supple. Mallampati class IV. There is no goiter or neck masses. LUNGS: Clear to auscultation. HEART: Sounds are regular rate and rhythm. Normal S1, S2. No S3, no murmurs. ABDOMEN: Soft, nontender. No organomegaly. EXTREMITIES: No edema. No cyanosis or clubbing. NEUROLOGICAL: Awake and alert. There is no focal neurological deficits. PSYCHIATRIC: Negative for anxiety or depression. SKIN: Negative for any wounds or ulceration. IMPRESSION: 1. Obstructive sleep apnea, symptomatic. 2. Hypertension. 3. Hyperlipidemia. 4. Chronic anxiety. PLAN: 1. Encourage weight loss. 2. Continue same medication. 3. Implement good sleep hygiene measures. 4. Avoid driving when feeling drowsy or sleepy. 5. Home sleep study to establish diagnosis and proceed with CPAP titration according. MMODL / IJN: [id number] /
== END ==
LOC: SLEEP 16:49
PROVIDERS: ATTEND Internal Medicine Critical Care Medicine
DX: G47.33 Obstructive sleep apnea (adult) (pediatric) (principal); I10 Essential (primary) hypertension; E78.5 Hyperlipidemia, unspecified; F41.8 Other specified anxiety disorders; E66.9 Obesity, unspecified; L23.81 Allergic contact dermatitis due to animal (cat) (dog) dander; J30.1 Allergic rhinitis due to pollen; Z98.890 Other specified postprocedural states; Z79.899 Other long term (current) drug therapy; Z68.35 Body mass index [BMI] 35.0-35.9, adult
CPT/HCPCS: 99211

== ENCOUNTER → 2018-09-28 | Outpatient (CLI) | payer OTHER ==
--- NOTE | 2018-09-28 16:29 | PN ---
PROGRESS NOTE . 38-year-old female patient diagnosed having severe FLACA with an AHI of 31, currently on CPAP pressure of 11. She is using a Simplus full face mask. Her only complaint is the mask is irritating her face causing red gonzalez around her nasal bridge and the face on both sides. The patient otherwise feeling well. She is much more alert and awake during the day. She has more energy. No major hypersomnia or sleepiness. Weight is 224. On the compliance data, the patient has been utilizing her CPAP machine 28 out of the past 30 days and she had she has more than 4 hours, 22 out of the past 30 days. Her average CPAP is around 6.2 hours per night. Her leak is 8 L/minutes. Her AHI is down to 8. She is trying to become more and more compliant. Otherwise, she has no specific complaints. She is using a 30 minutes ramp time. The patient has no other problems with the mask. REVIEW OF SYSTEM: Fourteen-point review of system was done. Positive findings are mentioned in history of present illness. PHYSICAL EXAMINATION: BP is 133/88, pulse 88, respirations 16, temp 98.4, weight is 224, saturation 97% on room air. GENERAL APPEARANCE: Calm, comfortable. HEENT: Head is atraumatic, normocephalic. NECK: Supple. No JVD. No goiter. No neck mass. LUNGS: Clear to auscultation. HEART: Sounds regular rate and rhythm. Normal S1, S2. No S3. No murmurs. ABDOMEN: Soft, nontender. No organomegaly. EXTREMITIES: No edema. No cyanosis or clubbing. NEUROLOGICALLY: The patient is awake and alert x3 without any focal neurological deficits. IMPRESSION: Obstructive sleep apnea. Severe AHI of 31, currently on CPAP pressure of 11. PLAN: The patient is benefitting from treatment. The snoring has subsided. Hypersomnia has recovered and the patient is trying to lose weight. I trialed on a DreamWear under the nose, small size full-face mask. The patient liked this option. The patient showed a good mask fit without any significant leaks. Based on all this, I may try to switch her to a DreamWear fullface mask at a later stage small size. Encourage weight loss. Optimize sleep hygiene measures. Treatment is successful, compliance data was checked. See me back in a year's time in followup, earlier if needed. A sample of the Dream wear mask was given. MMODL / IJN: [id number] /
== END | disposition home or self-care (01) ==

== ENCOUNTER → 2019-07-26 | Outpatient (CLI) | payer OTHER ==
--- NOTE | 2019-07-27 07:08 | US ---
EXAMINATION TYPE: US venous doppler duplex LE LT DATE OF EXAM: 07/26/2019 4:48 PM COMPARISON: NONE CLINICAL HISTORY: R22.42 swelling. Left leg pain and swelling SIDE PERFORMED: Left TECHNIQUE: The lower extremity deep venous system is examined utilizing real time linear array sonog wagner with graded compression, doppler sonography and color-flow sonography. VESSELS IMAGED: External Iliac Vein (EIV) Common Femoral Vein Deep Femoral Vein Greater Saphenous Vein * Femoral Vein Popliteal Vein Small Saphenous Vein * Proximal Calf Veins (* superficial vessels) Left Leg: Appears negative for DVT Left calf: 2.7 x 0.9 x 1.8cm cystic area with internal echoes seen at patient's palpable area of co ncern. IMPRESSION: 1. No diagnostic evidence of DVT. 2. There is a complex cystic mass involving the area of palpable abnormality measuring 2.7 cm. Consid er follow-up MRI.
== END | disposition home or self-care (01) ==
LOC: RADUSWWP 16:27
PROVIDERS: ATTEND Family Medicine
DX: R22.42 Localized swelling, mass and lump, left lower limb (principal)

== ENCOUNTER → 2019-09-09 | Outpatient (CLI) | payer OTHER ==
[2019-09-09 19:33] LABS: Albumin 4.5 g/dL (3.80-4.90); Albumin/Globulin Ratio 1.73 (1.60-3.17); Anion Gap 6.1 mmol/L (4.00-12.00); Carbon Dioxide 25.9 mmol/L (21.6-31.8); Globulin 2.6 g/dL (1.6-3.3); Non-African American GFR(CKD) 69.9 (60.0-200.0); Potassium 4.9 mmol/L (3.5-5.5); Total Bilirubin 0.5 mg/dL (0.3-1.2); Total Protein 7.1 g/dL (6.2-8.2)
== END ==
LOC: LABWHC1 11:07
PROVIDERS: ATTEND Nurse Practitioner Family
DX: N28.9 Disorder of kidney and ureter, unspecified (principal)
CPT/HCPCS: 36415; 80053

== ENCOUNTER → 2019-10-13 | Outpatient (CLI) | payer OTHER ==
--- NOTE | 2019-10-13 14:32 | MM ---
Reason for exam: screening (asymptomatic). Baseline mammogram. Physical Findings: Nurse did not find any significant physical abnormalities on exam. MG Screening Mammo w CAD Bilateral CC, MLO, and XCCL view(s) were taken. There are scattered fibroglandular densities. There is no discrete abnormality. These results were verbally communicated with the patient and result sheet given to the patient on 10/13/19. ASSESSMENT: Negative, BI-RAD 1 RECOMMENDATION: Routine screening mammogram of both breasts in 1 year.
== END | disposition home or self-care (01) ==
LOC: RADMAMWWP 13:01
PROVIDERS: ATTEND Family Medicine
DX: Z12.31 Encounter for screening mammogram for malignant neoplasm of breast (principal)
CPT/HCPCS: 77067

== ENCOUNTER → 2021-07-24 | Outpatient (CLI) | payer OTHER ==
[2021-07-24 10:14] LABS: INR 0.9 (<1.2); Prothrombin Time 10.1 sec (9.0-12.0)
[2021-07-24 14:29] LABS: HCT 43.3 % (37.2-46.3); MCH 29.5 pg (27.0-32.0); MCHC 32.3 g/dL (32.0-37.0); MCV 91.2 fL (80.0-97.0); Mean Platelet Volume 11.8 fL (9.5-12.2); NRBC Per 100 WBC 0 /100 WBCS (0.0-0.0); Platelet Count 249 X 10*3/uL (140-440); RBC 4.75 X 10*6/uL (4.10-5.20); RDW 14.6 % (11.5-14.5); WBC 8.32 X 10*3/uL (4.50-10.00)
[2021-07-24 18:07] LABS: LDL Cholesterol,Calculated 94.4 mg/dL (0.0-131.0)
[2021-07-24 20:35] LABS: % Iron Saturation 22.05 (12.00-45.00); ALT 32 U/L (8-44); AST 28 U/L (13-35); African American GFR (CKD) 90.8 (60.0-200.0); Albumin 4.4 g/dL (3.8-4.9); Albumin/Globulin Ratio 1.47 (1.60-3.17); Alkaline Phosphatase 102 U/L (41-126); BUN/Creat Ratio 15.44 Ratio (12.00-20.00); Blood Urea Nitrogen 13.9 mg/dL (9.0-27.0); Calcium 9.5 mg/dL (8.7-10.3); Carbon Dioxide 19.9 mmol/L (20.0-27.5); Chloride 101 mmol/L (96-109); Glucose 111 mg/dL (70-110); Iron 89 ug/dL (50-170); Magnesium 1.9 mg/dL (1.5-2.4); Non-African American GFR(CKD) 78.3 (60.0-200.0); Phosphorus 3.7 mg/dL (2.4-5.1); Potassium 4.6 mmol/L (3.5-5.5); Sodium 138 mmol/L (135-145); Total Iron Binding Capacity 405 ug/dL (228-460); Total Protein 7.4 g/dL (6.2-8.2)
[2021-07-25 12:50] LABS: Zinc, Serum 78 ug/dL (60-130)
== END | disposition home or self-care (01) ==
LOC: LABWHC1 08:37
PROVIDERS: ATTEND Surgery Plastic and Reconstructive Surgery
DX: K90.89 Other intestinal malabsorption (principal); E55.9 Vitamin D deficiency, unspecified; K74.1 Hepatic sclerosis; N19 Unspecified kidney failure; K50.90 Crohn's disease, unspecified, without complications; I11.9 Hypertensive heart disease without heart failure; E21.1 Secondary hyperparathyroidism, not elsewhere classified; D50.8 Other iron deficiency anemias
CPT/HCPCS: 36415; 80053; 80061; 82306; 82525; 82607; 82728; 82746; 83540; 83550; 83735; 83970; 84100; 84255; 84425; 84443; 84590; 84630; 85027; 85610; 85730; 93005

== ENCOUNTER 2022-02-18 14:43 | Emergency (ER) | payer OTHER ==
--- NOTE | 2022-02-18 14:46 | ED ---
General Adult HPI <Carlos Eduardo Villeda - Last Filed: 02/18/22 14:44> - General Source: patient, RN notes reviewed, old records reviewed <Benito Montaño - Last Filed: 02/18/22 23:02> - General Stated complaint: umbilical hernia Time Seen by Provider: 02/18/22 14:44 - History of Present Illness Initial comments: Dictation was produced using [employer] dictation software. please excuse any grammatical, word or spelling errors. Medical screening exam: 41-year-old female presents to the emergency department for umbilical hernia pain. She states that she has had an umbilical hernia for several months. States that over the last couple days she has had umbilical hernia site pain. He states that he does appear slightly red. She does complain of nausea. No vomiting. She also had been having trouble with small caliber stools and constipation. Denies any fevers. (Carlos Eduardo Villeda) - Related Data Home Medications Medication Instructions Recorded Confirmed ALPRAZolam [Xanax] 0.5 mg PO DAILY PRN 05/26/18 05/26/18 Losartan [Cozaar] 25 mg PO DAILY 05/26/18 05/26/18 PARoxetine HCL [Paxil] 30 mg PO DAILY 05/26/18 05/26/18 Previous Rx's Medication Instructions Recorded Atorvastatin Calcium [Lipitor] 20 mg PO DAILY #30 tab 05/27/18 polyethylene glycoL 3350 [Miralax] 17 gm PO DAILY 30 Days #30 packet 02/18/22 Allergies Allergy/AdvReac Type Severity Reaction Status Date / Time No Known Allergies Allergy Verified 02/18/22 14:55 Review of Systems ROS Other: All systems not noted in ROS Statement are negative. <Carlos Eduardo Villeda - Last Filed: 02/18/22 14:44> ROS Other: All systems not noted in ROS Statement are negative. <Benito Montaño - Last Filed: 02/18/22 23:02> ROS Statement: Those systems with pertinent positive or pertinent negative responses have been documented in the HPI. Past Medical History Past Medical History: Eye Disorder, Hyperlipidemia, Hypertension, Sleep Apnea/CPAP/BIPAP Additional Past Medical History / Comment(s): Bilateral glaucoma, FLACA but does not wear her device d/t she states it is dirty. History of Any Multi-Drug Resistant Organisms: None Reported Past Surgical History: Section, Orthopedic Surgery Additional Past Surgical History / Comment(s): Bilateral carpal tunnel surgery 2016, R eye vitrectomy. Past Anesthesia/Blood Transfusion Reactions: Motion Sickness Additional Past Anesthesia/Blood Transfusion Reaction / Comment(s): Pt is unsure if she received blood at time of her . Past Psychological History: Anxiety, Depression Additional Psychological History / Comment(s): Pt resides with her fiance. She is independent. Past Alcohol Use History: Occasional Additional Past Alcohol Use History / Comment(s): Pt started smoking in 1991 and quit 6 months ago. Past Drug Use History: None Reported - Past Family History Father Family Medical History: Hyperlipidemia, Seizure Disorder, Sleep Apnea/CPAP/BIPAP Additional Family Medical History / Comment(s): Epilepsy d/t brain injury. Mother Family Medical History: Neurologic Disorder Additional Family Medical History / Comment(s): Mother at the age of 57yrs from supernuclear palsey. <Carlos Eduardo Villeda - Last Filed: 02/18/22 14:44> Course Vital Signs 02/18/22 02/18/22 14:50 18:51 Temperature 97.8 F Pulse Rate 80 66 Respiratory 18 18 Rate Blood Pressure 176/122 140/88 O2 Sat by Pulse 96 97 Oximetry Medical Decision Making - Lab Data Result diagrams: 02/18/22 14:46 02/18/22 14:46 <Benito Montaño - Last Filed: 02/18/22 23:02> - Medical Decision Making Labs, x-rays, CT Labs show no evidence of leukocytosis. Electrolytes are unremarkable. No evidence of lactic acidosis. X-ray interpreted by me shows no evidence of free air. Radiologist interpretation an overall nonspecific nonobstructive bowel gas pattern. CT abdomen shows a moderate umbilical hernia no evidence of free air, enlarged liver. Radiologist interpretation fatty infiltration of the liver with no dilated ducts. Hepatomegaly. Large fat-containing umbilical hernia with a minimal fat stranding in the fat in the umbilical hernia could be mild inflammation. I discussed this case with Dr. Rajan at 1824 who recommended discharge and follow-up with Dr. Arana this week. Patient is agreeable to this plan of care, requesting MiraLAX prescription which was provided. Case discussed with Dr. Rivers Was pt. sent in by a medical professional or institution? @ -No Did you speak to anyone other than the patient for history? @ -No Did you review nursing and triage notes? @ -Yes I agree Were old charts reviewed? @ -No Differential Diagnosis? @ -Differential Abdominal Pain Women: Appendicitis, Cholecystitis, diverticulosis, ischemic bowel, pancreatitis, hepatitis, UTI, gastroenteritis, AAA, incarcerated hernia, bowel obstruction, constipation, inflammatory bowel, hepatitis, peptic ulcer disease, splenic infarction, perforated viscus, vulvitis, ovarian torsion, PID, kidney stone, placenta abruption, this is not meant to be an all-inclusive list EKG interpreted by me (3pts min.)? @ -Not applicable X-rays interpreted by me (1pt min.)? @ -Yes as above CT interpreted by me (1pt min.)? @ -Yes as above U/S interpreted by me (1pt. min.)? @ -Not applicable What testing was considered but not performed? (CT, X-rays, U/S, labs)? Why? @ None What meds were considered but not given? Why? @ -Antibiotics were considered however there is no infectious pathology noted Did you discuss the management of the patient with other professionals? @ -Dr. Rajan surgeon Did you reconcile home meds? @ -No Was smoking cessation discussed for >3mins.? @ -No Was critical care preformed (if so, how long)? @ -No Were there social determinants of health that impacted care today? How? (Homelessness, low income, unemployed, alcoholism, drug addiction, transportation, low edu. Level, literacy, decrease access to med. care, detention, rehab)? @ -None Was there de-escalation of care discussed even if they declined? (Discuss DNR or withdrawal of care, Hospice)? @ -No What co-morbidities impacted this encounter? (DM, HTN, Smoking, COPD, CAD, Cancer, CVA, Hep., AIDS, mental health diagnosis, sleep apnea, morbid obesity)? @ -Hypertension and obstructive sleep apnea, morbid obesity Was patient admitted / discharged? @ -Discharged Undiagnosed new problem with uncertain prognosis? @ -[none] Drug Therapy requiring intensive monitoring for toxicity (Heparin, Nitro, Insulin, Cardizem)? @ -No Were any procedures done? @ -None Diagnosis/symptom? @ -Umbilical hernia Acute, or Chronic, or Acute on Chronic? @ -Acute on chronic Uncomplicated (without systemic symptoms) or Complicated (systemic symptoms)? @ -Uncomplicated Side effects of treatment? @ -[none] Exacerbation, Progression, or Severe Exacerbation] @ -[no] Poses a threat to life or bodily function? @ -[no] (Benito Montaño) - Lab Data Lab Results 02/18/22 02/18/22 02/18/22 Range/Units 14:46 14:46 14:46 WBC 7.8 (3.8-10.6) k/uL RBC 4.42 (3.80-5.40) m/uL Hgb 13.8 (11.4-16.0) gm/dL Hct 39.2 (34.0-46.0) % MCV 88.6 (80.0-100.0) fL MCH 31.1 (25.0-35.0) pg MCHC 35.1 (31.0-37.0) g/dL RDW 13.5 (11.5-15.5) % Plt Count 239 (150-450) k/uL MPV 9.1 Neutrophils % 62 % Lymphocytes % 27 % Monocytes % 4 % Eosinophils % 5 % Basophils % 1 % Neutrophils # 4.8 (1.3-7.7) k/uL Lymphocytes # 2.1 (1.0-4.8) k/uL Monocytes # 0.3 (0-1.0) k/uL Eosinophils # 0.4 (0-0.7) k/uL Basophils # 0.1 (0-0.2) k/uL Sodium 137 (137-145) mmol/L Potassium 4.2 (3.5-5.1) mmol/L Chloride 105 (98-107) mmol/L Carbon Dioxide 25 (22-30) mmol/L Anion Gap 7 mmol/L BUN 13 (7-17) mg/dL Creatinine 0.76 (0.52-1.04) mg/dL Est GFR (CKD-EPI)AfAm >90 (>60 ml/min/1.73 sqM) Est GFR (CKD-EPI)NonAf >90 (>60 ml/min/1.73 sqM) Glucose 116 H (74-99) mg/dL Plasma Lactic Acid Mo 1.5 (0.7-2.0) mmol/L Calcium 9.0 (8.4-10.2) mg/dL Total Bilirubin 0.6 (0.2-1.3) mg/dL AST 32 (14-36) U/L ALT 38 H (4-34) U/L Alkaline Phosphatase 89 (38-126) U/L Total Protein 7.2 (6.3-8.2) g/dL Albumin 4.2 (3.5-5.0) g/dL Lipase 96 (23-300) U/L Disposition <Carlos Eduardo Villeda - Last Filed: 02/18/22 14:44> Is patient prescribed a controlled substance at d/c from ED?: No Time of Disposition: 18:25 <Benito Montaño - Last Filed: 02/18/22 23:02> Clinical Impression: Umbilical hernia Disposition: HOME SELF-CARE Condition: Good Instructions (If sedation given, give patient instructions): Umbilical Hernia (ED) Additional Instructions: Call Dr. Arana's office in the morning to notify them of increased pain and possible sooner appointment. Return to the emergency room with a new concerning symptoms including inability to pass gas or increased pain. Prescriptions: polyethylene glycoL 3350 [Miralax] 17 gm PO DAILY 30 Days #30 packet Referrals: Jaspreet Bermudez DO [Primary Care Provider] - 1-2 days
[2022-02-18 14:55] VITALS: RESP 18; TEMP 97.8
[2022-02-18 15:18] LABS: Basophils # (A) 0.1 k/uL (0-0.2); Basophils % (A) 1 %; Eosinophils # (A) 0.4 k/uL (0-0.7); Eosinophils % (A) 5 %; HCT 39.2 % (34.0-46.0); HGB 13.8 gm/dL (11.4-16.0); Lymphocytes # (A) 2.1 k/uL (1.0-4.8); Lymphocytes % (A) 27 %; MCH 31.1 pg (25.0-35.0); MCHC 35.1 g/dL (31.0-37.0); MCV 88.6 fL (80.0-100.0); Mean Platelet Volume 9.1; Monocytes # (A) 0.3 k/uL (0-1.0); Monocytes % (A) 4 %; Neutrophils # (A) 4.8 k/uL (1.3-7.7); Neutrophils % (A) 62 %; Platelet Count 239 k/uL (150-450); RBC 4.42 m/uL (3.80-5.40); RDW 13.5 % (11.5-15.5); WBC 7.8 k/uL (3.8-10.6)
[2022-02-18 15:31] LABS: ALT 38 U/L (4-34); AST 32 U/L (14-36); African American GFR (CKD) >90 (>60 ml/min/1.73 sqM); Albumin 4.2 g/dL (3.5-5.0); Alkaline Phosphatase 89 U/L (38-126); Anion Gap 7 mmol/L; Blood Urea Nitrogen 13 mg/dL (7-17); Carbon Dioxide 25 mmol/L (22-30); Chloride 105 mmol/L (98-107); Glucose 116 mg/dL (74-99); Lipase 96 U/L (23-300); Non-African American GFR(CKD) >90 (>60 ml/min/1.73 sqM); Potassium 4.2 mmol/L (3.5-5.1); Sodium 137 mmol/L (137-145); Total Bilirubin 0.6 mg/dL (0.2-1.3); Total Protein 7.2 g/dL (6.3-8.2)
--- NOTE | 2022-02-18 15:43 | XR ---
EXAMINATION TYPE: XR abdomen 1V DATE OF EXAM: 02/18/2022 3:30 PM CLINICAL HISTORY: Hernia and pain. Possible obstruction. TECHNIQUE: Two Upright KUB images of the abdomen are obtained. COMPARISON: Prior abdominal x-ray 2011. FINDINGS: Gas seen in nondistended stomach. Some paucity of small bowel gas. Some nondistended small bowel loops in the right lower quadrant. Gas seen in nondistended colon along the periphery. Lung bas es are clear. No free air. Osseous structures are intact. IMPRESSION: Overall nonspecific but favor nonobstructive bowel gas pattern.
--- NOTE | 2022-02-18 17:42 | CT ---
EXAMINATION TYPE: CT abdomen pelvis w con DATE OF EXAM: 02/18/2022 COMPARISON: None HISTORY: umbilical hernia, pain CT DLP: 2320.4 mGycm Automated exposure control for dose reduction was used. CONTRAST: Performed with IV Contrast, patient injected with 100 mL of Isovue 300. Images obtained from the diaphragm to the floor of the pelvis with the IV contrast. The lung bases are clear. No pleural effusion. Heart size is normal. There is no pericardial effusion . There is fatty infiltration of the liver. Stomach is intact. There is small hiatal hernia. Spleen i s intact. No pancreatic mass. Gallbladder appears normal. Liver is enlarged and measures 23.5 cm. There is no adrenal mass. Kidneys show satisfactory contrast opacification. No hydronephrosis. Delayed images show normal renal excretion. No retroperitoneal wesley opathy. The bladder distends smoothly. Uterus is anteverted. No free fluid in the pelvis. There are 2 large cysts on the right ovary that measure each 6.5 cm. There is a 5 cm fat-containing umbilical he rnia. Appendix is inferior and appears normal. There is no mesenteric edema. No ascites or free air. No sig n of a bowel obstruction. The lumbar vertebra appear intact. No compression fracture. Posterior eleme nts are intact. The bony pelvis is intact. Hip joints are intact. Sacroiliac joints appear intact. IMPRESSION: Fatty infiltration of liver. No dilated ducts. Hepatomegaly. Large fat-containing umbilical hernia. M inimal fat stranding in the fat in the umbilical hernia could be mild inflammation.
[2022-02-18] MEDS ORDERED: HYDROmorphone 0.5 MG/0.5 ML SYRINGE IVP STA (18:26)
[2022-02-18 18:52] VITALS: BP 140/88; PULSE 66
== END 2022-02-18 19:03 | disposition home or self-care (01) ==
LOC: EC 14:43
DX: K42.9 Umbilical hernia without obstruction or gangrene (principal); E78.5 Hyperlipidemia, unspecified; I10 Essential (primary) hypertension; F41.9 Anxiety disorder, unspecified; F32.A Depression, unspecified; Z79.899 Other long term (current) drug therapy
CPT/HCPCS: 36415; 80053; 83605; 83690; 85025; 74018; 74177; 99284; 96374; J1170; Q9967

== ENCOUNTER → 2022-03-26 | Outpatient (CLI) | payer OTHER ==
[2022-03-26 17:24] VITALS: BP 154/103; PULSE 75; TEMP 98.1; BMI 40.8
== END ==
LOC: BARWHC3 16:11
PROVIDERS: ATTEND Surgery Plastic and Reconstructive Surgery
DX: E66.01 Morbid (severe) obesity due to excess calories (principal)
CPT/HCPCS: 99213

== ENCOUNTER → 2022-06-06 | Outpatient (CLI) | payer OTHER ==
[2022-06-06 19:27] LABS: Hepatitis C IgG Antibody Nonreactive (Nonreactive)
[2022-06-06 20:38] LABS: Basophils # (A) 0.07 X 10*3/uL (0.00-0.10); Basophils % (A) 0.8 %; Eosinophils # (A) 0.27 X 10*3/uL (0.04-0.35); HCT 45.8 % (37.2-46.3); HGB 15.3 g/dL (12.0-15.0); Immature Grans, Automated 0.4 %; Lymphocytes # (A) 2.58 X 10*3/uL (0.90-5.00); Lymphocytes % (A) 28.7 %; MCH 30.2 pg (27.0-32.0); MCHC 33.4 g/dL (32.0-37.0); MCV 90.3 fL (80.0-97.0); Mean Platelet Volume 11.7 fL (9.5-12.2); Monocytes # (A) 0.76 X 10*3/uL (0.20-1.00); Monocytes % (A) 8.5 %; NRBC Per 100 WBC 0 /100 WBCS (0.0-0.0); Neutrophils # (A) 5.26 X 10*3/uL (1.80-7.70); Neutrophils % (A) 58.6 %; Platelet Count 277 X 10*3/uL (140-440); RBC 5.07 X 10*6/uL (4.10-5.20); WBC 8.98 X 10*3/uL (4.50-10.00)
[2022-06-06 22:12] LABS: Insulin Level 41.6 mIU/mL (3.0-25.0)
[2022-06-07 00:47] LABS: Chol/HDL Ratio 4.85 Ratio; LDL Cholesterol,Calculated 116.8 mg/dL (0.0-131.0)
[2022-06-07 00:57] LABS: ALT 60 U/L (8-44); AST 46 U/L (13-35); African American GFR (CKD) 90.5 (60.0-200.0); Albumin 4.6 g/dL (3.8-4.9); Albumin/Globulin Ratio 1.52 (1.60-3.17); Alkaline Phosphatase 96 U/L (41-126); BUN/Creat Ratio 16.85 Ratio (12.00-20.00); Blood Urea Nitrogen 15.2 mg/dL (9.0-27.0); Carbon Dioxide 17.2 mmol/L (20.0-27.5); Chloride 101 mmol/L (96-109); Glucose 87 mg/dL (70-110); Non-African American GFR(CKD) 78.1 (60.0-200.0); Potassium 4.7 mmol/L (3.5-5.5); Sodium 142 mmol/L (135-145); Total Protein 7.6 g/dL (6.2-8.2)
== END | disposition home or self-care (01) ==
LOC: LABWHC1 12:59
PROVIDERS: ATTEND Internal Medicine
DX: Z11.59 Encounter for screening for other viral diseases (principal); I10 Essential (primary) hypertension; R20.2 Paresthesia of skin; E28.2 Polycystic ovarian syndrome
CPT/HCPCS: 36415; 80053; 80061; 82607; 82746; 83036; 83525; 84443; 85025; 86803

== ENCOUNTER 2023-01-28 11:14 | Emergency (ER) | payer OTHER ==
[2023-01-28] MEDS ORDERED: KETOROLAC 15 MG/ML 1 ML VIAL IVP STA (12:21)
[2023-01-28] MEDS ORDERED: SODIUM CHLORIDE 0.9% 1,000 ML IV STA (12:21)
[2023-01-28 12:24] LABS: Appearance,Urine Turbid (Clear); Color,Urine Dark Yellow
[2023-01-28 12:25] LABS: Glucose,Urine (UA) Negative (Negative); Protein,Urine 2+ (Negative); Specific Gravity,Urine 1.025 (1.001-1.035)
[2023-01-28 12:26] LABS: Bilirubin,Urine 1+ (Negative); Blood,Urine Moderate (Negative); Ketones,Urine 2+ (Negative); Leukocyte Esterase,Urine Moderate (Negative); Nitrite,Urine Positive (Negative); Urobilinogen,Urine 0.2 mg/dL (<2.0)
[2023-01-28 12:29] LABS: Mucus,Urine Occasional /hpf; Squamous Epithelial Cell,Urine 37 /hpf (0-4); WBC,Urine >182 /hpf (0-5)
[2023-01-28 12:53] LABS: ALT 23 U/L (4-34); AST 28 U/L (14-36); African American GFR (CKD) >90 (>60 ml/min/1.73 sqM); Albumin 3.6 g/dL (3.5-5.0); Alkaline Phosphatase 88 U/L (38-126); Anion Gap 11 mmol/L; Blood Urea Nitrogen 13 mg/dL (7-17); Calcium 8.4 mg/dL (8.4-10.2); Carbon Dioxide 23 mmol/L (22-30); Chloride 99 mmol/L (98-107); Glucose 88 mg/dL (74-99); Non-African American GFR(CKD) >90 (>60 ml/min/1.73 sqM); Potassium 3.6 mmol/L (3.5-5.1); Sodium 133 mmol/L (137-145); Total Protein 6.8 g/dL (6.3-8.2)
[2023-01-28 13:05] LABS: Basophils # (A) 0.1 k/uL (0-0.2); Basophils % (A) 1 %; Eosinophils # (A) 0.1 k/uL (0-0.7); Eosinophils % (A) 1 %; HCG,Qualitative Serum Not Detected; HCT 37.5 % (34.0-46.0); HGB 12.9 gm/dL (11.4-16.0); Lymphocytes # (A) 1.2 k/uL (1.0-4.8); Lymphocytes % (A) 11 %; MCH 30.7 pg (25.0-35.0); MCHC 34.4 g/dL (31.0-37.0); MCV 89.4 fL (80.0-100.0); Mean Platelet Volume 8.5; Monocytes # (A) 0.6 k/uL (0-1.0); Monocytes % (A) 6 %; Neutrophils # (A) 8.7 k/uL (1.3-7.7); Neutrophils % (A) 80 %; Platelet Count 184 k/uL (150-450); RBC 4.19 m/uL (3.80-5.40); RDW 13.7 % (11.5-15.5); WBC 10.9 k/uL (3.8-10.6)
--- NOTE | 2023-01-28 13:08 | XR ---
EXAMINATION TYPE: XR chest 2V DATE OF EXAM: 01/28/2023 COMPARISON: 05/26/2018 INDICATION: Difficulty in breathing TECHNIQUE: Frontal and lateral views of the chest are obtained. FINDINGS: The heart size is normal. The pulmonary vasculature is normal. The lungs are clear. IMPRESSION: 1. No acute pulmonary process.
[2023-01-28] MEDS ORDERED: cefTRIAXone IN SWFI 1,000 MG/10 ML SYRINGE IVP STA (13:28)
--- NOTE | 2023-01-28 13:30 | ED ---
Female Urogenital HPI - General Chief complaint: Urogenital Stated complaint: flu like symptoms possible uti Time Seen by Provider: 01/28/23 11:58 Source: patient, RN notes reviewed Mode of arrival: ambulatory Limitations: no limitations - History of Present Illness Initial comments: This is a 42-year-old female who presents to the emergency department for upper respiratory symptoms and urinary symptoms. Reports 2-3 days of coughing, congestion, and headaches. Also reports 2 days of burning with urination, lower abdominal pain, and urinary urgency. Denies any fevers or chills. Denies any sick contacts. States that she has recently had UTIs frequently and this feels similar. MD Complaint: dysuria - Related Data Home Medications Medication Instructions Recorded Confirmed ALPRAZolam [Xanax] 0.5 mg PO DAILY PRN 05/26/18 04/03/22 Losartan [Cozaar] 100 mg PO DAILY 05/26/18 04/03/22 PARoxetine HCL [Paxil] 60 mg PO DAILY 05/26/18 04/03/22 Omeprazole [PriLOSEC] 40 mg PO DAILY 03/26/22 04/03/22 Atorvastatin Calcium [Lipitor] 40 mg PO DAILY 04/01/22 04/03/22 Previous Rx's Medication Instructions Recorded Acetaminophen Tab [Tylenol Tab] 1,000 mg PO Q6HR PRN #30 tablet 04/03/22 Cyclobenzaprine [Flexeril] 10 mg PO TID #30 tab 04/03/22 Ibuprofen [Motrin] 600 mg PO Q8HR PRN #30 tab 04/03/22 Ketorolac [Toradol] 10 mg PO Q6HR PRN #15 tab 01/28/23 Sulfamethox-Tmp 800-160Mg [Bactrim 1 tab PO Q12HR 10 Days #20 tab 01/28/23 DS 800-160 mg] Allergies Allergy/AdvReac Type Severity Reaction Status Date / Time No Known Allergies Allergy Verified 01/28/23 11:40 Review of Systems ROS Statement: Those systems with pertinent positive or pertinent negative responses have been documented in the HPI. ROS Other: All systems not noted in ROS Statement are negative. Past Medical History Past Medical History: Eye Disorder, Hyperlipidemia, Hypertension, Sleep Apnea/CPAP/BIPAP Additional Past Medical History / Comment(s): Bilateral glaucoma, FLACA but does not wear her device d/t she states it is dirty. History of Any Multi-Drug Resistant Organisms: None Reported Past Surgical History: Section, Orthopedic Surgery Additional Past Surgical History / Comment(s): Bilateral carpal tunnel surgery 2016, R eye vitrectomy. Past Anesthesia/Blood Transfusion Reactions: Motion Sickness Additional Past Anesthesia/Blood Transfusion Reaction / Comment(s): Pt is unsure if she received blood at time of her . Past Psychological History: Anxiety, Depression Smoking Status: Former smoker - Past Family History Father Family Medical History: Hyperlipidemia, Seizure Disorder, Sleep Apnea/CPAP/BIPAP Additional Family Medical History / Comment(s): Epilepsy d/t brain injury. Mother Family Medical History: Neurologic Disorder Additional Family Medical History / Comment(s): Mother at the age of 57yrs from supernuclear palsey. General Exam Limitations: no limitations General appearance: alert, in no apparent distress Head exam: Present: atraumatic, normocephalic, normal inspection Respiratory exam: Present: normal lung sounds bilaterally. Absent: respiratory distress, wheezes, rales, rhonchi, stridor Cardiovascular Exam: Present: regular rate, normal rhythm, normal heart sounds. Absent: systolic murmur, diastolic murmur, rubs, gallop, clicks GI/Abdominal exam: Present: soft, normal bowel sounds. Absent: distended, tenderness, guarding, rebound, rigid Back exam: Absent: CVA tenderness (R), CVA tenderness (L) Neurological exam: Present: alert, oriented X3, CN II-XII intact Psychiatric exam: Present: normal affect, normal mood Skin exam: Present: warm, dry, intact, normal color. Absent: rash Course Vital Signs 01/28/23 01/28/23 11:35 13:44 Temperature 98.5 F 97.8 F Pulse Rate 97 80 Respiratory 18 19 Rate Blood Pressure 133/93 137/99 O2 Sat by Pulse 98 99 Oximetry Medical Decision Making - Medical Decision Making This is a 42-year-old female who presents to the emergency department for burning with urination and upper respiratory symptoms. Was pt. sent in by a medical professional or institution? @ -No Did you speak to anyone other than the patient for history? @ -No Did you review nursing and triage notes? @ -Yes, and I agree, it is accurate with regards to the patient's symptoms. Were old charts reviewed? @ -No Differential Diagnosis? @ -Differential Dysuria: UTI, STD, pyelonephritis, this is not meant to be an all-inclusive list. EKG interpreted by me (3pts min.)? @ -Not obtained X-rays interpreted by me (1pt min.)? @ -Chest x-ray obtained, my interpretation identifies no localized consolidations or infiltrates. CT interpreted by me (1pt min.)? @ -Not obtained U/S interpreted by me (1pt. min.)? @ -Not obtained What testing was considered but not performed? (CT, X-rays, U/S, labs)? Why? @ -None What meds were considered but not given? Why? @ -None Did you discuss the management of the patient with other professionals? @ -No Did you reconcile home meds? @ -No Was smoking cessation discussed for >3mins.? @ -No Was critical care preformed (if so, how long)? @ -No Were there social determinants of health that impacted care today? How? (Homelessness, low income, unemployed, alcoholism, drug addiction, transportation, low edu. Level, literacy, decrease access to med. care, custodial, rehab)? @ -No Was there de-escalation of care discussed even if they declined? (Discuss DNR or withdrawal of care, Hospice)? @ -No What co-morbidities impacted this encounter? (DM, HTN, Smoking, COPD, CAD, Cancer, CVA, Hep., AIDS, mental health diagnosis, sleep apnea, morbid obesity)? @ -None Was patient admitted / discharged? @ -Discharged. Lab work obtained revealing mild leukocytosis and was otherwise unremarkable. Covid, influenza, and RSV testing were negative. Chest x-ray reveals no acute process. Urinalysis was consistent with infection and urine was sent for culture. Her symptoms were well controlled with IV fluids and Toradol. She was given a dose of ceftriaxone in the emergency department and a prescription for Bactrim was provided with dosing instructions reviewed. She was also given a prescription for Toradol for additional symptomatic management. Undiagnosed new problem with uncertain prognosis? @ -None Drug Therapy requiring intensive monitoring for toxicity (Heparin, Nitro, Insulin, Cardizem)? @ -None Were any procedures done? @ -None Diagnosis/symptom? @ -UTI, viral URI Acute, or Chronic, or Acute on Chronic? @ -Acute Uncomplicated (without systemic symptoms) or Complicated (systemic symptoms)? @ -Uncomplicated Side effects of treatment? @ -None Exacerbation, Progression, or Severe Exacerbation] @ -Not applicable Poses a threat to life or bodily function? @ -No Return precautions reviewed in depth, the patient is instructed to return to the emergency department with any new, worsening, or concerning symptoms. Patient verbalized understanding. This case was discussed in detail with the attending ED physician, Dr. Villeda. Presentation, findings, and treatment plan discussed in detail as well. - Lab Data Result diagrams: 01/28/23 12:55 01/28/23 12:55 Lab Results 01/28/23 01/28/23 01/28/23 Range/Units 11:42 11:52 12:55 WBC 10.9 H (3.8-10.6) k/uL RBC 4.19 (3.80-5.40) m/uL Hgb 12.9 (11.4-16.0) gm/dL Hct 37.5 (34.0-46.0) % MCV 89.4 (80.0-100.0) fL MCH 30.7 (25.0-35.0) pg MCHC 34.4 (31.0-37.0) g/dL RDW 13.7 (11.5-15.5) % Plt Count 184 (150-450) k/uL MPV 8.5 Neutrophils % 80 % Lymphocytes % 11 % Monocytes % 6 % Eosinophils % 1 % Basophils % 1 % Neutrophils # 8.7 H (1.3-7.7) k/uL Lymphocytes # 1.2 (1.0-4.8) k/uL Monocytes # 0.6 (0-1.0) k/uL Eosinophils # 0.1 (0-0.7) k/uL Basophils # 0.1 (0-0.2) k/uL Sodium (137-145) mmol/L Potassium (3.5-5.1) mmol/L Chloride (98-107) mmol/L Carbon Dioxide (22-30) mmol/L Anion Gap mmol/L BUN (7-17) mg/dL Creatinine (0.52-1.04) mg/dL Est GFR (CKD-EPI)AfAm (>60 ml/min/1.73 sqM) Est GFR (CKD-EPI)NonAf (>60 ml/min/1.73 sqM) Glucose (74-99) mg/dL Plasma Lactic Acid Mo (0.7-2.0) mmol/L Calcium (8.4-10.2) mg/dL Total Bilirubin (0.2-1.3) mg/dL AST (14-36) U/L ALT (4-34) U/L Alkaline Phosphatase (38-126) U/L Total Protein (6.3-8.2) g/dL Albumin (3.5-5.0) g/dL HCG, Qual Urine Color Dark Yellow Urine Appearance Turbid H (Clear) Urine pH 6.0 (5.0-8.0) Ur Specific [place] 1.025 (1.001-1.035) Urine Protein 2+ H (Negative) Urine Glucose (UA) Negative (Negative) Urine Ketones 2+ (Negative) Urine Blood Moderate H (Negative) Urine Nitrite Positive H (Negative) Urine Bilirubin 1+ H (Negative) Urine Urobilinogen 0.2 (<2.0) mg/dL Ur Leukocyte Esterase Moderate H (Negative) Urine WBC >182 H (0-5) /hpf Urine WBC Clumps Many H (None) /hpf Ur Squamous Epith Cells 37 H (0-4) /hpf Urine Mucus Occasional H (None) /hpf Influenza Type A (PCR) Not Detected (Not Detectd) Influenza Type B (PCR) Not Detected (Not Detectd) RSV (PCR) Not Detected (Not Detectd) SARS-CoV-2 (PCR) Not Detected (Not Detectd) 01/28/23 01/28/23 Range/Units 12:55 12:55 WBC (3.8-10.6) k/uL RBC (3.80-5.40) m/uL Hgb (11.4-16.0) gm/dL Hct (34.0-46.0) % MCV (80.0-100.0) fL MCH (25.0-35.0) pg MCHC (31.0-37.0) g/dL RDW (11.5-15.5) % Plt Count (150-450) k/uL MPV Neutrophils % % Lymphocytes % % Monocytes % % Eosinophils % % Basophils % % Neutrophils # (1.3-7.7) k/uL Lymphocytes # (1.0-4.8) k/uL Monocytes # (0-1.0) k/uL Eosinophils # (0-0.7) k/uL Basophils # (0-0.2) k/uL Sodium 133 L (137-145) mmol/L Potassium 3.6 (3.5-5.1) mmol/L Chloride 99 (98-107) mmol/L Carbon Dioxide 23 (22-30) mmol/L Anion Gap 11 mmol/L BUN 13 (7-17) mg/dL Creatinine 0.75 (0.52-1.04) mg/dL Est GFR (CKD-EPI)AfAm >90 (>60 ml/min/1.73 sqM) Est GFR (CKD-EPI)NonAf >90 (>60 ml/min/1.73 sqM) Glucose 88 (74-99) mg/dL Plasma Lactic Acid Mo 0.9 (0.7-2.0) mmol/L Calcium 8.4 (8.4-10.2) mg/dL Total Bilirubin 1.0 (0.2-1.3) mg/dL AST 28 (14-36) U/L ALT 23 (4-34) U/L Alkaline Phosphatase 88 (38-126) U/L Total Protein 6.8 (6.3-8.2) g/dL Albumin 3.6 (3.5-5.0) g/dL HCG, Qual Not Detected Urine Color Urine Appearance (Clear) Urine pH (5.0-8.0) Ur Specific [place] (1.001-1.035) Urine Protein (Negative) Urine Glucose (UA) (Negative) Urine Ketones (Negative) Urine Blood (Negative) Urine Nitrite (Negative) Urine Bilirubin (Negative) Urine Urobilinogen (<2.0) mg/dL Ur Leukocyte Esterase (Negative) Urine WBC (0-5) /hpf Urine WBC Clumps (None) /hpf Ur Squamous Epith Cells (0-4) /hpf Urine Mucus (None) /hpf Influenza Type A (PCR) (Not Detectd) Influenza Type B (PCR) (Not Detectd) RSV (PCR) (Not Detectd) SARS-CoV-2 (PCR) (Not Detectd) - Radiology Data Radiology results: report reviewed, image reviewed Disposition Clinical Impression: Urinary tract infection, Viral URI Disposition: HOME SELF-CARE Instructions (If sedation given, give patient instructions): Urinary Tract Infection in Women (ED) Additional Instructions: Return to the emergency department with any new, worsening, or concerning symptoms. Take the antibiotics as prescribed for 10 days. You can take [id number] AZO as needed for burning with urination. Take the Toradol with Tylenol as needed for pain relief. If you choose to take the Toradol, do not take any other anti-inflammatories such as ibuprofen, take one or the other. Follow up with your primary care provider in 1-2 days. Prescriptions: Sulfamethox-Tmp 800-160Mg [Bactrim DS 800-160 mg] 1 tab PO Q12HR 10 Days #20 tab Ketorolac [Toradol] 10 mg PO Q6HR PRN #15 tab PRN Reason: Pain Is patient prescribed a controlled substance at d/c from ED?: No Referrals: Justin Bashir MD [Primary Care Provider] - 1-2 days
[2023-01-28 14:08] VITALS: BP 137/99; PULSE 80; RESP 19; TEMP 97.8
== END 2023-01-28 13:45 | disposition home or self-care (01) ==
LOC: EC 11:14
DX: N39.0 Urinary tract infection, site not specified (principal); J06.9 Acute upper respiratory infection, unspecified; E78.5 Hyperlipidemia, unspecified; I10 Essential (primary) hypertension; G47.30 Sleep apnea, unspecified; F41.9 Anxiety disorder, unspecified; F32.A Depression, unspecified; Z87.891 Personal history of nicotine dependence; Z79.899 Other long term (current) drug therapy; Z20.822 Contact with and (suspected) exposure to COVID-19
CPT/HCPCS: 36415; 80053; 83605; 85025; 81001; 84703; 87086; 87077; 87186; 87636; 71046; 99284; 96374; 96361; J1885

== ENCOUNTER 2023-12-02 14:32 | Emergency (ER) | payer OTHER ==
--- NOTE | 2023-12-02 16:31 | ED ---
Chest Pain HPI - General Source: patient, RN notes reviewed Mode of arrival: ambulatory Limitations: no limitations <Margie Hoyt - Last Filed: 12/02/23 16:30> <Danielle Hauser - Last Filed: 12/04/23 00:34> - General Chief Complaint: Chest Pain Stated Complaint: chest pain Time Seen by Provider: 12/02/23 16:30 - History of Present Illness Initial Comments: 43-year-old female presented to ER with a chief complaint of chest discomfort. Patient states she was feeling unwell all day. She laid down to take a nap and upon waking around 1:30 PM she experienced left-sided squeezing chest discomfort with radiation to her left arm and neck. She reports dizziness, lightheadedness and shortness of breath especially with deep inspirations. No history of heart disease. History of hypertension and hyperlipidemia. (Margie Hoyt) 43-year-old female presents emergency department reporting chest discomfort. Patient states she awoke from sleep around 1:30 PM after a nap with left-sided chest pain. States it is a squeezing sensation in her chest with radiation to her left arm and neck. The pain is worse when she moves around and takes a deep breath. States that if she sits in 1 spot for a period of time that her symptoms improved. She does not take anything for the pain. No history of heart disease but does have a history of hypertension and hyperlipidemia. She has not had previous stress testing approximately 4 years ago. Does not follow with a sustainability manager. Pain is graded currently as a 3 out of 10. No other alleviating, precipitating modifying factors (Danielle Hauser) - Related Data Home Medications Medication Instructions Recorded Confirmed ALPRAZolam [Xanax] 0.5 mg PO DAILY PRN 05/26/18 04/03/22 Losartan [Cozaar] 100 mg PO DAILY 05/26/18 04/03/22 PARoxetine HCL [Paxil] 60 mg PO DAILY 05/26/18 04/03/22 Omeprazole [PriLOSEC] 40 mg PO DAILY 03/26/22 04/03/22 Atorvastatin Calcium [Lipitor] 40 mg PO DAILY 04/01/22 04/03/22 Previous Rx's Medication Instructions Recorded Acetaminophen Tab [Tylenol Tab] 1,000 mg PO Q6HR PRN #30 tablet 04/03/22 Cyclobenzaprine [Flexeril] 10 mg PO TID #30 tab 04/03/22 Ibuprofen [Motrin] 600 mg PO Q8HR PRN #30 tab 04/03/22 Ketorolac [Toradol] 10 mg PO Q6HR PRN #15 tab 01/28/23 Sulfamethox-Tmp 800-160Mg [Bactrim 1 tab PO Q12HR 10 Days #20 tab 01/28/23 DS 800-160 mg] Ketorolac [Toradol] 10 mg PO Q8HR #15 tab 12/02/23 Allergies Allergy/AdvReac Type Severity Reaction Status Date / Time No Known Allergies Allergy Verified 12/02/23 14:39 Review of Systems ROS Other: All systems not noted in ROS Statement are negative. <Margie Hoyt - Last Filed: 12/02/23 16:30> ROS Other: All systems not noted in ROS Statement are negative. <Danielle Hauser - Last Filed: 12/04/23 00:34> ROS Statement: Those systems with pertinent positive or pertinent negative responses have been documented in the HPI. Past Medical History Past Medical History: Eye Disorder, Hyperlipidemia, Hypertension, Sleep Apnea/CPAP/BIPAP Additional Past Medical History / Comment(s): Bilateral glaucoma, FLACA but does not wear her device d/t she states it is dirty. History of Any Multi-Drug Resistant Organisms: None Reported Past Surgical History: Section, Orthopedic Surgery Additional Past Surgical History / Comment(s): Bilateral carpal tunnel surgery 2016, R eye vitrectomy. Past Anesthesia/Blood Transfusion Reactions: Motion Sickness Additional Past Anesthesia/Blood Transfusion Reaction / Comment(s): Pt is unsure if she received blood at time of her . Past Psychological History: Anxiety, Depression Smoking Status: Former smoker - Past Family History Father Family Medical History: Hyperlipidemia, Seizure Disorder, Sleep Apnea/CPAP/BIPAP Additional Family Medical History / Comment(s): Epilepsy d/t brain injury. Mother Family Medical History: Neurologic Disorder Additional Family Medical History / Comment(s): Mother at the age of 57yrs from supernuclear palsey. <Margie Hoyt - Last Filed: 12/02/23 16:30> General Exam Limitations: no limitations <Margie Hoyt - Last Filed: 12/02/23 16:30> General appearance: alert, in no apparent distress Head exam: Present: atraumatic, normocephalic, normal inspection Eye exam: Present: normal appearance, PERRL, EOMI. Absent: scleral icterus, conjunctival injection, periorbital swelling ENT exam: Present: normal exam, mucous membranes moist Neck exam: Present: normal inspection. Absent: tenderness, meningismus, lymphadenopathy Respiratory exam: Present: normal lung sounds bilaterally. Absent: respiratory distress, wheezes, rales, rhonchi, stridor Cardiovascular Exam: Present: regular rate, normal rhythm, normal heart sounds. Absent: systolic murmur, diastolic murmur, rubs, gallop, clicks GI/Abdominal exam: Present: soft, normal bowel sounds. Absent: distended, tenderness, guarding, rebound, rigid Extremities exam: Present: normal inspection, full ROM, normal capillary refill. Absent: tenderness, pedal edema, joint swelling, calf tenderness Back exam: Present: normal inspection Neurological exam: Present: alert, oriented X3, CN II-XII intact Psychiatric exam: Present: normal affect, normal mood Skin exam: Present: warm, dry, intact, normal color. Absent: rash <Danielle Hauser - Last Filed: 12/04/23 00:34> - General Exam Comments Initial Comments: Visual Physical Exam Vital signs reviewed General: Well-appearing, nontoxic, no acute distress. Mildly diaphoretic Head: Normocephalic, atraumatic Eyes: PERRLA, EOMI ENT: Airway patent Chest: Nonlabored breathing Skin: No visual rash, normal skin tone Neuro: Alert and oriented 3 Musculoskeletal: No gross abnormalities (Margie Hoyt) Course Vital Signs 12/02/23 12/02/23 12/02/23 14:35 19:00 19:58 Temperature Pulse Rate 94 87 89 Respiratory 22 16 13 Rate Blood Pressure 149/104 134/102 131/96 O2 Sat by Pulse 100 97 96 Oximetry 12/02/23 12/02/23 20:42 21:11 Temperature 98.7 F Pulse Rate 82 82 Respiratory 24 12 Rate Blood Pressure 129/85 132/69 O2 Sat by Pulse 97 97 Oximetry Chest Pain MDM <Margie Hoyt - Last Filed: 12/02/23 16:30> <Danielle Hauser - Last Filed: 12/04/23 00:34> - [facility] I performed the quick note portion of this chart. Electronically signed by Margie Hoyt PA-C (Margie Hoyt) Was pt. sent in by a medical professional or institution (NAPOLEON Mercado, IMMUNOLOGY TEACHER, urgent care, hospital, or skilled nursing...) When possible be specific @ -No Did you speak to anyone other than the patient for history (EMS, parent, family, police, friend...)? What history was obtained from this source @ -No Did you review nursing and triage notes (agree or disagree)? Why? @ -I reviewed and agree with nursing and triage notes Were old charts reviewed (outside hosp., previous admission, EMS record, old EKG, old radiological studies, urgent care reports/EKG's, skilled nursing records)? Report findings @ -No old charts were reviewed Differential Diagnosis (chest pain, altered mental status, abdominal pain women, abdominal pain men, vaginal bleeding, weakness, fever, dyspnea, syncope, headache, dizziness, GI bleed, back pain, seizure, CVA, palpatations, mental health, musculoskeletal)? @ -Differential Chest Pain: Stable Angina, Unstable Angina, STEMI, NSTEMI Aortic Dissection, Pneumothorax, Musculoskeletal, Esophageal Spasm GERD, Cholecystitis, Pancreatitis, Zoster, this is not meant to be an all-inclusive list. EKG interpreted by me (3pts min.). @ -Yes and demonstrates sinus rhythm with a rate of 94. MI interval 151. QRS 92. QTc of 400. No acute ST segment elevations or depressions X-rays interpreted by me (1pt min.). @ -Yes and demonstrates no acute process CT interpreted by me (1pt min.). @ -None done U/S interpreted by me (1pt. min.). @ -None done What testing was considered but not performed or refused? (CT, X-rays, U/S, labs)? Why? @ -Admission for echo and cardiology consultation however patient wanted to go home What meds were considered but not given or refused? Why? @ -None Did you discuss the management of the patient with other professionals (professionals i.e. NAPOLEON Mercado, IMMUNOLOGY TEACHER, lab, RT, psych nurse, social scientist, hr recruiter, teacher, dispatch officer, manager rn case)? Give summary @ -No Was smoking cessation discussed for >3mins.? @ -No Was critical care preformed (if so, how long)? @ -No Were there social determinants of health that impacted care today? How? (Homelessness, low income, unemployed, alcoholism, drug addiction, transportation, low edu. Level, literacy, decrease access to med. care, shelter, rehab)? @ -No Was there de-escalation of care discussed even if they declined (Discuss DNR or withdrawal of care, Hospice)? DNR status @ -No What co-morbidities impacted this encounter? (DM, HTN, Smoking, COPD, CAD, Cancer, CVA, ARF, Chemo, Hep., AIDS, mental health diagnosis, sleep apnea, morbid obesity)? @ -Hypertension and hyperlipidemia Was patient admitted / discharged? Hospital course, mention meds given and route, prescriptions, significant lab abnormalities, going to OR and other pertinent info. @ -Upon arrival patient seen and evaluated in bed 3. Thorough history and physical exam was performed. IV access was established. Laboratory studies were conducted. Chest x-ray was performed. D-dimer is negative. Troponin is negative. I did discuss results with the patient. She does have risk factors including hypertension and hyperlipidemia. Patient did have improvement in her symptoms with Toradol. She wants to go home. I did request a second troponin level for which the patient was agreeable. Second troponin does return and is negative. At this time the patient will be discharged home. I recommended that she follow-up with her primary care doctor in 2 to 4 days. She will need repeat cardiac workup at this time to include stress test and echo. Return for any new or worsening symptoms. Patient agreeable to plan was discharged in stable condition Undiagnosed new problem with uncertain prognosis? @ -No Drug Therapy requiring intensive monitoring for toxicity (Heparin, Nitro, In sulin, Cardizem)? @ -No Were any procedures done? @ -No Diagnosis/symptom? @ -Acute chest pain Acute, or Chronic, or Acute on Chronic? @ -Acute Uncomplicated (without systemic symptoms) or Complicated (systemic symptoms)? @ -Complicated Side effects of treatment? @ -No Exacerbation, Progression, or Severe Exacerbation? @ -No Poses a threat to life or bodily function? How? (Chest pain, [place], [place], pneumonia, PE, COPD, DKA, ARF, appy, cholecystitis, CVA, Diverticulitis, Homicidal, Suicidal, threat to staff... and all critical care pts) @ -Yes the symptoms may represent ACS (Danielle Hauser) Disposition <Margie Hoyt - Last Filed: 12/02/23 16:30> Is patient prescribed a controlled substance at d/c from ED?: No Time of Disposition: 21:06 <Danielle Hauser - Last Filed: 12/04/23 00:34> Clinical Impression: Chest pain Disposition: HOME SELF-CARE Condition: Stable Instructions (If sedation given, give patient instructions): Chest Pain (ED) Additional Instructions: Please take the Toradol as needed. Follow-up with your doctor. I recommend an echo, stress test and Holter monitoring. Return for any new or worsening symptoms Prescriptions: Ketorolac [Toradol] 10 mg PO Q8HR #15 tab Referrals: Justin Bashir DO [Primary Care Provider] - 1-2 days
--- NOTE | 2023-12-02 16:57 | XR ---
EXAMINATION TYPE: XR chest 2V DATE OF EXAM: 12/02/2023 4:52 PM CLINICAL INDICATION: Female, 43 years old with history of Chest Pain; [facility] COMPARISON: None TECHNIQUE: XR chest 2V Frontal view of the chest. FINDINGS: Lungs/Pleura: There is no evidence of pleural effusion, focal consolidation, or pneumothorax. Pulmonary vascularity: Unremarkable. Heart/mediastinum: Cardiomediastinal silhouette is unremarkable. Musculoskeletal: No acute osseous pathology. Other findings: None IMPRESSION: No acute cardiopulmonary disease/process. [facility], , 12/02/2023 4:55 PM
[2023-12-02 17:52] LABS: Basophils % (A) 0 %; Eosinophils # (A) 0.2 k/uL (0-0.7); Eosinophils % (A) 2 %; HCT 43.7 % (34.0-46.0); HGB 14.5 gm/dL (11.4-16.0); Lymphocytes # (A) 1.4 k/uL (1.0-4.8); Lymphocytes % (A) 14 %; MCH 30.6 pg (25.0-35.0); MCHC 33.3 g/dL (31.0-37.0); MCV 91.9 fL (80.0-100.0); Mean Platelet Volume 8.4; Monocytes # (A) 0.5 k/uL (0-1.0); Monocytes % (A) 5 %; Neutrophils # (A) 7.4 k/uL (1.3-7.7); Neutrophils % (A) 76 %; Platelet Count 243 k/uL (150-450); RBC 4.75 m/uL (3.80-5.40); RDW 13.6 % (11.5-15.5); WBC 9.8 k/uL (3.8-10.6)
[2023-12-02 18:43] LABS: ALT 17 U/L (4-34); AST 22 U/L (14-36); African American GFR (CKD) >90 (>60 ml/min/1.73 sqM); Albumin 4.1 g/dL (3.5-5.0); Alkaline Phosphatase 88 U/L (38-126); Anion Gap 6 mmol/L; Blood Urea Nitrogen 13 mg/dL (7-17); Calcium 9.4 mg/dL (8.4-10.2); Carbon Dioxide 26 mmol/L (22-30); Chloride 105 mmol/L (98-107); Glucose 90 mg/dL (74-99); Magnesium 1.9 mg/dL (1.6-2.3); Non-African American GFR(CKD) >90 (>60 ml/min/1.73 sqM); Sodium 137 mmol/L (137-145); Total Bilirubin 0.8 mg/dL (0.2-1.3)
[2023-12-02 18:56] LABS: INR 0.9 (<1.2); Partial Thromboplastin Time 22.2 sec (22.0-30.0); Prothrombin Time 10.2 sec (10.0-12.5)
[2023-12-02] MEDS: KETOROLAC 15 MG/ML 1 ML VIAL IVP STA (19:52)
[2023-12-02 20:44] VITALS: PULSE 82
[2023-12-02 21:13] VITALS: BP 132/69; RESP 12; TEMP 98.7
== END 2023-12-02 21:17 | disposition home or self-care (01) ==
LOC: EC 14:32
CPT/HCPCS: 36415; 71046; 80053; 83735; 84484; 85025; 85379; 85610; 85730; 93005; 96374; 99285